=== PATIENT | female | born 1950 | race Caucasian/White ===

== ENCOUNTER 2020-07-10 07:45 | Outpatient (CLI) | payer MEDICARE, OTHER, SELFPAY ==
--- NOTE | ~2020-07-10 | MM_ITS ---
EXAMINATION: MM screening jacqueline BI w perry HISTORY: Screening mammogram TECHNIQUE: Craniocaudal and mediolateral oblique 3-D tomosynthesis images were obtained and synthetic 2-D images were generated. CAD analysis was submitted and interpreted. COMPARISON: No prior mammogram is available for comparison at this institution. BREAST PARENCHYMAL COMPOSITION: There are scattered areas of fibroglandular density. FINDINGS: There is asymmetric density and suggested focal architectural distortion in the mid to lowe r outer left breast (craniocaudal Tomosynthesis images 17-31). Otherwise there is no evidence of suspicious mass, calcification, or architectural distortion to sugg est malignancy in either breast. There has been no other suspicious interval change. IMPRESSION: 1. Focal asymmetry/architectural distortion in middle lower outer left breast 2. Diagnostic left mammogram and left breast ultrasound examination are recommended. BI-RADS Category 0: Incomplete: Needs additional imaging evaluation. Reviewed, dictated and finalized at location A. IMPRESSION: 1. Focal asymmetry/architectural distortion in middle lower outer left breast 2. Diagnostic left mammogram and left breast ultrasound examination are recomme nded. BI-RADS Category 0: Incomplete: Needs additional imaging evaluation.
--- NOTE | ~2020-07-10 | DEXA_ITS ---
Bone Density Report Name: Linda Cooley Age: 69 Sex: Female Ethnicity: White Date of : 1950 Indication: postmenopausal; parental hip fracture; height loss; prior fracture; Referring Provider: Kalia Samaniego Study: Bone densitometry was performed. Exam Date: July 10, 2020 Accession number: [id number] There is hypertrophic degenerative change of the lumbar spine, which results in higher than expected spine bone mineral density measurements. These spine BMD and T score and Z score measurements are not reflective of the patient's true general bone mineral density. Bone Density: Region BMD T-score Z-score Classification AP Spine (L2, L3) 1.047 -0.1 2.0 Normal Femoral Neck (Left) 0.674 -1.6 0.2 Osteopenia Total Hip (Left) 0.845 -0.8 0.7 Normal Total Hip Bilateral Avg 0.828 -1.0 0.6 Osteopenia Femoral Neck (Right) 0.685 -1.5 0.3 Osteopenia Total Hip (Right) 0.810 -1.1 0.4 Osteopenia World Health Organization criteria for BMD impression classify patients as: Normal (T-score at or above -1.0), Osteopenia (T-score between -1.0 and -2.5), or Osteoporosis (T-score at or below -2.5). 10-year Fracture Risk(1): Major Osteoporotic Fracture 22% Hip Fracture 3.8% Reported Risk Factors: [place] (), Neck BMD=0.674, BMI=37.3, previous fracture, parental fracture (1) FRAX(R) Version 3.08. Fracture probability calculated for an untreated patient. Fracture probability may be lower if the patient has received treatment. Clinical Information Provided by Patient: Has had a low trauma fracture Parent has had a hip fracture Has used the following medications: Vitamin D, Calcium Patient maximum height was 63.5 Menopause Age: 50 Drinks caffeinated beverages Onset of menses at age 13 Number of children 2 Impression: The patient has low bone mass, based on the Left Femoral Neck T-score. The patient has an estimated ten-year risk of hip fracture of 3.8% and an estimated ten-year risk of major fracture of 22%, based on the WHO FRAX algorithm. The patient has risk factors, including: parental hip fracture, previous fracture. There is hypertrophic degenerative change of the lumbar spine, which results in higher than expected spine bone mineral density measurements. These spine BMD and T score and Z score measurements are not reflective of the patient's true general bone mineral density. Discussion: BONE DENSITY IS LOW AT ONE OR MORE SKELETAL SITES. THE PATIENT'S BMD AND CLINICAL RISK FACTORS CONTRIBUTE TO THIS PATIENT'S HIGH RISK OF FRACTURE. This patient's lowest T-score is low at one or more skeletal sites. It meets the World Health Organization's (WHO) criteria for ?low bone mass? (T-score between -1.0 and -2.5). The patient's 10-year risk of hip fracture and 10 year risk of a major osteoporotic fracture as calculat
== END 2020-07-10 07:46 | disposition home or self-care (01) ==
PROVIDERS: PCP Family Medicine; Visit Provider Family Medicine
DX: Z12.31 Encounter for screening mammogram for malignant neoplasm of breast (principal); Z78.0 Asymptomatic menopausal state; M85.89 Other specified disorders of bone density and structure, multiple sites; R92.8 Other abnormal and inconclusive findings on diagnostic imaging of breast
CPT/HCPCS: 77063; 77067; 77080

== ENCOUNTER 2020-09-25 08:48 | Outpatient (CLI) | payer MEDICARE, OTHER, SELFPAY ==
--- NOTE | 2020-09-25 11:30 | NEURO_ITS ---
Impression: # Complains of pain and numbness of hands and forearms, particularly on the left. # Mild evolving left Carpal Tunnel Syndrome. # No ulnar neuropathy. # Normal needle/EMG exam. # Clinical correlation recommended. Nerve Conduction Studies Anti Sensory Summary Table Stim Site NR Peak (ms) P-T Amp (?V) Site1 Site2 Delta-P (ms) Dist (cm) Ambrosio (m/s) Left Median Anti Sensory (2-3nd Digit) Wrist 3.5 31.9 Wrist 2-3nd Digit 3.5 14.0 40 Wrist 3.5 57.7 Wrist 2-3nd Digit 3.5 14.0 40 Right Median Anti Sensory (2-3nd Digit) Wrist 3.5 23.8 Wrist 2-3nd Digit 3.5 14.0 40 Wrist 3.5 32.8 Wrist 2-3nd Digit 3.5 14.0 40 Left Radial Anti Sensory (Base 1st Digit) Wrist 2.1 23.8 Wrist Base 1st Digit 2.1 0.0 Right Radial Anti Sensory (Base 1st Digit) Wrist 2.3 17.3 Wrist Base 1st Digit 2.3 0.0 Left Ulnar Anti Sensory (5th Digit) Wrist 2.4 44.6 Wrist 5th Digit 2.4 14.0 58 Right Ulnar Anti Sensory (5th Digit) Wrist 2.4 24.9 Wrist 5th Digit 2.4 14.0 58 Motor Summary Table Stim Site NR Onset (ms) O-P Amp (mV) Site1 Site2 Delta-0 (ms) Dist (cm) Ambrosio (m/s) Left Median Motor (Abd Poll Brev) Wrist 3.4 4.7 Elbow Wrist 4.6 26.0 57 Elbow 8.0 1.7 Right Median Motor (Abd Poll Brev) Wrist 3.0 7.2 Elbow Wrist 5.1 28.0 55 Elbow 8.1 5.2 Left Ulnar Motor (Abd Dig Minimi) Wrist 2.3 4.6 A Elbow Wrist 4.9 28.0 57 A Elbow 7.2 2.9 Right Ulnar Motor (Abd Dig Minimi) Wrist 2.6 7.4 A Elbow Wrist 4.4 27.0 61 A Elbow 7.0 5.9 F Wave Studies NR F-Lat (ms) L-R F-Lat (ms) Left Median (Mrkrs) (Abd Poll Brev) 26.80 0.19 Right Median (Mrkrs) (Abd Poll Brev) 26.61 0.19 Left Ulnar (Mrkrs) (Abd Dig Min) 27.33 0.75 Right Ulnar (Mrkrs) (Abd Dig Min) 26.58 0.75 EMG Side Muscle Nerve Root Ins Act Fibs Amp Dur Recrt Comment Right 1stDorInt Ulnar C8-T1 Nml Nml Nml Nml Nml Right Ext Indicis Radial (Post Int) C7-8 Nml Nml Nml Nml Nml Right Ext Digitorum Radial (Post Int) C7-8 Nml Nml Nml Nml Nml Right BrachioRad Radial C5-6 Nml Nml Nml Nml Nml Right PronatorTeres Median C6-7 Nml Nml Nml Nml Nml Right Abd Poll Brev Median C8-T1 Nml Nml Nml Nml Nml Left 1stDorInt Ulnar C8-T1 Nml Nml Nml Nml Nml Left Ext Indicis Radial (Post Int) C7-8 Nml Nml Nml Nml Nml Left Ext Digitorum Radial (Post Int) C7-8 Nml Nml Nml Nml Nml Left BrachioRad Radial C5-6 Nml Nml Nml Nml Nml Left PronatorTeres Median C6-7 Nml Nml Nml Nml Nml Left Abd Poll Brev Median C8-T1 Nml Nml Nml Nml Nml Right ABD Dig Min Ulnar C8-T1 Nml Nml Nml Nml Nml Left ABD Dig Min Ulnar C8-T1 Nml Nml Nml Nml Nml MTDD
== END 2020-09-25 08:49 | disposition home or self-care (01) ==
PROVIDERS: PCP Family Medicine; Visit Provider Family Medicine
DX: G56.02 Carpal tunnel syndrome, left upper limb (principal)
CPT/HCPCS: 95886; 95911

== ENCOUNTER 2020-12-26 10:16 | Outpatient (CLI) | payer MEDICARE, OTHER, SELFPAY ==
--- NOTE | ~2020-12-26 | XR_ITS ---
EXAMINATION: XR lumbar spine 2-3V DATE: 12/26/2020 10:38 INDICATION: Low back pain TECHNIQUE: Anteroposterior and lateral views of the lumbar spine, and cone-down lateral view of the l umbosacral junction were obtained. COMPARISON: None. FINDINGS: 25 degrees lumbar levoscoliosis measured between L1 and L4. 3 mm anterolisthesis L2 on L3 and 4 mm an terolisthesis L4 on L5. Vertebral body heights are normal. Severe right-sided disc height loss at L2- L3 and L3-L4. More uniform severe disc height loss with vacuum phenomena at L4-L5. Moderate left-side d disc height loss at L1-L2. Mild disc height loss at L5-S1 and on the left side of T12-L1. There are prominent degenerative endplate osteophytes and severe multilevel bilateral facet osteoarthritis thr oughout the lumbar spine. Sacral arches are intact. Mild bilateral sacroiliac osteoarthritis. Cholecy stectomy clips in the right upper quadrant. IMPRESSION: 1. 25 degrees lumbar levoscoliosis with severe spondylosis. Reviewed, dictated and finalized at location B. U NURSE
--- NOTE | ~2020-12-26 | XR_ITS ---
EXAMINATION: XR knee RT 3V DATE: 12/26/2020 10:37 INDICATION: Right knee pain. TECHNIQUE: 3 views of right knee were obtained. COMPARISON: None. FINDINGS: Bone alignment is normal. No fracture. There is mild tricompartmental osteoarthritis. No kn ee joint effusion. IMPRESSION: 1. Mild right knee osteoarthritis. Reviewed, dictated and finalized at location A. 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
== END 2020-12-26 10:17 | disposition home or self-care (01) ==
LOC: ANHIMG 10:20
PROVIDERS: PCP Family Medicine; Visit Provider Nurse Practitioner Family
DX: M47.816 Spondylosis without myelopathy or radiculopathy, lumbar region (principal); M17.11 Unilateral primary osteoarthritis, right knee
CPT/HCPCS: 72100; 73562

== ENCOUNTER 2021-01-16 12:01 | Outpatient (CLI) | payer MEDICARE, OTHER, SELFPAY ==
--- NOTE | ~2021-01-16 | XR_ITS ---
XR wrist LT min 3V DATE: 01/16/2021 12:22 INDICATION: Pain and grinding at lateral aspect of wrist TECHNIQUE: 4 views COMPARISON: None FINDINGS: There is prominent osteoarthritic change at the first carpometacarpal joint, including join t space narrowing and degenerative spurring. There is osteoarthritis at the first and fifth metacarpophalangeal joints. No fracture or dislocation, periosteal reaction or bone destruction, erosive change or chondrocalcino sis is detected. Moderate osteopenia. IMPRESSION: Prominent osteoarthritis at the first carpometacarpal joint Osteoarthritis at first and fifth metacarpophalangeal joints Osteopenia Reviewed, dictated and finalized at location A.
== END 2021-01-16 12:02 | disposition home or self-care (01) ==
LOC: ANHIMG 12:06
PROVIDERS: PCP Family Medicine; Visit Provider Plastic Surgery
DX: M19.032 Primary osteoarthritis, left wrist (principal); M19.042 Primary osteoarthritis, left hand; M85.842 Other specified disorders of bone density and structure, left hand
CPT/HCPCS: 73110

== ENCOUNTER 2021-02-17 09:50 | Outpatient (CLI) | payer MEDICARE, OTHER, SELFPAY ==
--- NOTE | 2021-02-17 10:15 | ECG_ITS ---
Measurements Intervals [place] Rate: 55 P: 33 TN: 166 QRS: 111 QRSD: 92 T: 17 QT: 398 QTc: 382 Interpretive Statements SINUS BRADYCARDIA RIGHT AXIS DEVIATION POSSIBLE LEFT ATRIAL ENLARGEMENT INCOMPLETE RIGHT BUNDLE BRANCH BLOCK BORDERLINE T WAVE ABNORMALITY- ANT/INF LEADS BASELINE ARTIFACT- I, II, III, AVR, AVL BORDERLINE ECG Electronically Signed On 02-17-2021 11:01:02 CDT by Bill William D.O.
[2021-02-17 10:30] LABS: Anion Gap 3 mmol/L (8-16); Blood Urea Nitrogen 20 mg/dL (7-17); Calcium 9.2 mg/dL (8.4-10.2); Carbon Dioxide 36 mmol/L (22-30); Chloride 103 mmol/L (98-107); Estimated Glomerular Filt Rate > 60; Glucose 95 mg/dL (65-105); Potassium 4.1 mmol/L (3.4-5.0); Sodium 142 mmol/L (137-145)
== END 2021-02-17 09:51 | disposition home or self-care (01) ==
LOC: ANHSURGERY 09:55
PROVIDERS: Anesthesiology; PCP Family Medicine; Visit Provider Plastic Surgery
DX: Z01.818 Encounter for other preprocedural examination (principal); E78.5 Hyperlipidemia, unspecified; Z51.81 Encounter for therapeutic drug level monitoring; Z79.899 Other long term (current) drug therapy; R00.1 Bradycardia, unspecified; I45.10 Unspecified right bundle-branch block
CPT/HCPCS: 36415; 80048; 93005

== ENCOUNTER → 2021-02-21 02:02 | Outpatient (CLI) | payer MEDICARE, OTHER, SELFPAY ==
[2021-02-21 19:16] LABS: SARS-CoV-2 RNA PCR Negative
== END ==
PROVIDERS: PCP Family Medicine; Visit Provider Plastic Surgery
DX: Z01.812 Encounter for preprocedural laboratory examination (principal); Z20.822 Contact with and (suspected) exposure to COVID-19
CPT/HCPCS: C9803; U0003; U0005

== ENCOUNTER 2021-02-25 00:51 | Day surgery (SDC) | payer MEDICARE, OTHER, SELFPAY ==
[2021-02-12 15:19] VITALS: BMI 39.1
[2021-02-25] VITALS (7 sets, daily range): BP systolic 119–156; BP diastolic 57–78; PULSE 51–66; RESP 12–20; TEMP 37.2; O2SAT 93–100
[2021-02-25] MEDS: LACTATED RINGERS 1,000 ML 30 ML IV CONT (06:40)
--- NOTE | 2021-02-25 06:53 | WPDANESEPPF ---
Anes - Initial Pre Proc Eval Procedure: Operation Date: 02/25/21 07:30 Proposed Procedures p Left Open Carpal Tunnel Release - Avinash Mccormick MD Date/Time: 02/25/21 06:53 Surgeon: Avinash Mccormick MD Pre Op Diagnosis: left carpal tunnel syndrome Patient Data Age: 70 Gender: F Height: 1.57 m Weight: 97 kg Allergies Allergy/AdvReac Type Severity Reaction Status Date / Time Sulfa (Sulfonamide AdvReac Mild RED WELPS Verified 02/25/21 06:24 Antibiotics) AT FOLD AREAS OF NECK/GROIN/AXILLA Home Medications Medication Instructions Recorded Confirmed Type albuterol sulfate 90 mcg/actuation 1 puff INHALATION Q4H PRN 06/17/20 02/12/21 History aerosol inhaler calcium citrate 315 mg 1 tablet PO BID 06/17/20 02/25/21 History calcium-vitamin D3 6.25 mcg (250 unit) tablet cyclosporine 0.05 % eye drops in a 1 drop EACH EYE Q12H 06/17/20 02/25/21 History dropperette fluticasone propionate 50 2 spray NASAL DAILY PRN 06/17/20 02/25/21 History mcg/actuation nasal spray,suspension furosemide 20 mg tablet 10 mg PO QAM 06/17/20 02/25/21 History lidocaine 5 % topical patch 1 patch TOPICAL DAILY PRN 06/17/20 02/12/21 History multivitamin 1 tablet PO DAILY 06/17/20 02/25/21 History omega-3 fatty acids-fish oil 360 1 cap PO BID 06/17/20 02/25/21 History mg-1,200 mg capsule timolol 0.5 % eye drops 1 drop EACH EYE Q12H 06/17/20 02/25/21 History vit C 250 mg-vit E 200 unit-zinc 1 cap PO BID 06/17/20 02/25/21 History ox 12.5 et-lpgxyd-nubwee-zeax capsule celecoxib 200 mg capsule 200 mg PO DAILY #90 cap 09/30/20 02/25/21 Rx atorvastatin 10 mg tablet 10 mg PO DAILY #90 tablet 01/14/21 02/25/21 Rx montelukast 10 mg tablet 10 mg PO DAILY #90 tablet 01/14/21 02/25/21 Rx cyclobenzaprine 5 mg PO HS 02/12/21 02/25/21 History diphenhydramine-acetaminophen 1 tablet PO HS PRN 02/12/21 02/25/21 History [Tylenol PM Extra Strength] duloxetine [Cymbalta] 60 mg PO QAM 02/12/21 02/25/21 History Patient hx anesthesia problems: none Family hx anesthesia problems: none PMFSH Past Medical History Medical History (Updated 02/24/21 @ 13:11 by Andrea Castellon DO) Allergic rhinitis Asthma Fibromyalgia Glaucoma HLD (hyperlipidemia) Macular degeneration PONV (postoperative nausea and vomiting) Sjogren's disease Surgical History Surgical History History of bilateral cataract extraction History of bilateral tubal ligation History of cholecystectomy History of D&C Family History Family History Sibling Throat cancer Hypertension Heart disease Mother Dementia Social History Social History (Updated 01/30/21 @ 09:27 by Tatiana Najera MA) Smoking status: Never smoker Second hand tobacco smoke exposure: No Alcohol intake: current Substance use: never Substance use type: does not use Living arrangements: with family Additional living arrangements comments: [facility]USB Gender identity (if verbalized by the patient): Female Spiritual care concerns: No Anes - Eval Final PreProcedure Day of Procedure 02/25/21 06:53 Patient weight: obese Heart: regular rate and rhythm Lungs: clear to auscultation and normal air movement Airway: Mallampati scale class II Neurological: alert and oriented Last oral intake: >/= 8 hours ASA classification: III Emergent: no Anesthetic plan: proceed Anesthesia type and monitoring: general GIVS and standard monitoring Informed Consent: The patient's anesthetic plan and its attendant risks and benefits were discussed with the patient/family/POA. Questions were solicited and answers provided to the satisfaction of the patient/family/POA.
--- NOTE | 2021-02-25 07:08 | WPDHPUPDATE1 ---
History and Physical Update Update Date/Time: 02/25/21 07:08 History and Physical has been reviewed, including an updated exam of the patient. There are NO changes in the patient's condition. Risks, benefits, and alternatives have been discussed and questions answered. Patient agrees to proceed with procedure.
[2021-02-25] MEDS: LIDO 1%/EPINEPHRINE 1:100,000 50 ML VIAL INFILTRATE (07:24)
--- NOTE | 2021-02-25 07:31 | PM.OP ---
Procedure Note - Brief Procedure Note - Brief Date of procedure: 02/25/21 Pre-op diagnosis: left carpal tunnel syndrome Post-op diagnosis: same Procedure performed: LOCTR Anesthesia: MAC Surgeon: Avinash Mccormick MD Estimated blood loss (mL): 0 Drains: No Packing: No Pathology: none sent Complications: No immediate complications Condition: stable Disposition: same day
--- NOTE | 2021-02-25 08:02 | PM.PROC ---
Procedure Note - Detailed Date of procedure: 02/25/21 Pre-op diagnosis: left carpal tunnel syndrome Post-op diagnosis: same Procedure performed: Left open carpal tunnel release Description of procedure: The left wrist was marked in the holding area. The patient was taken to the operating room and placed supine on the operating table. A time-out was held and confirmed. The extremity was prepped and draped in usual fashion she was given IV sedation. The site was marked the tourniquet was inflated 250 mmHg had been locally infiltrated with 1% lidocaine with epinephrine. Incision was made as marked and dissection was carried through the subcutaneous tissue to the palmar aponeurosis. This and the transverse carpal ligament were incised with a 15. Blade. Under 3 point retraction the ligament divided distally and proximally for complete release. There was no unusual anatomy. The skin wound was closed with interrupted 5 0 nylon suture. Small bandage was applied she has instructions in and follow-up. She has a prescription for hydrocodone 5/325 10. Anesthesia: MAC Surgeon: Avinash Mccormick MD Estimated blood loss (mL): 1 Tourniquet time (min): 6 Drains: No Packing: No Pathology: none sent Complications: No immediate complications Condition: stable Disposition: same day
[2021-02-25] MEDS: ONDANSETRON INJ 4 MG/2 ML VIAL IV PUSH (08:30)
--- NOTE | 2021-02-25 08:33 | ECG_ITS ---
Measurements Intervals [place] Rate: 47 P: 35 [place]: 182 QRS: 87 QRSD: 99 T: 11 QT: 458 QTc: 407 Interpretive Statements SINUS BRADYCARDIA INCOMPLETE RIGHT BUNDLE BRANCH BLOCK BORDERLINE ST-T WAVE ABNORMALITY- ANT/INF LEADS BASELINE WANDER- V4, V6 ABNORMAL ECG Electronically Signed On 02-25-2021 9:00:39 CDT by Bill William D.O.
[2021-02-25 09:20] LABS: Glucose Point of Care 121 (65-105)
[2021-02-25 09:32] LABS: Troponin I < 0.012 ng/mL (0.000-0.034)
== END 2021-02-25 10:20 | disposition home or self-care (01) ==
PROVIDERS: Anesthesiology; PCP Family Medicine; Visit Provider Plastic Surgery
PROC: (CPT 64721; principal; 2021-02-25 07:30)
DX: G56.02 Carpal tunnel syndrome, left upper limb (principal); J45.909 Unspecified asthma, uncomplicated; M79.7 Fibromyalgia; E78.5 Hyperlipidemia, unspecified; M35.00 Sjogren syndrome, unspecified; H40.9 Unspecified glaucoma; H35.30 Unspecified macular degeneration; Z79.51 Long term (current) use of inhaled steroids; E66.9 Obesity, unspecified; Z68.39 Body mass index [BMI] 39.0-39.9, adult
CPT/HCPCS: 64721; 36415; 82948; 84484; 93005; A9270; J2250; J2405; J2704; J3010; J7120

== ENCOUNTER 2021-03-11 13:30 | Outpatient (CLI) | payer MEDICARE, OTHER, SELFPAY ==
--- NOTE | ~2021-03-11 | XR_ITS ---
XR hand RT 2V DATE: 03/11/2021 14:45 INDICATION: Multiple joint pain. Right hand pain. TECHNIQUE: AP and lateral views COMPARISON: None FINDINGS: Osteopenia. There is osteoarthritis at the first carpometacarpal joint, first, second and fifth metacarpophalange al joints in particular, as well as multiple interphalangeal joints, most prominent at the proximal i nterphalangeal joint of the third digit. No fracture or dislocation, periosteal reaction or bone destruction. No erosive change or chondrocalc inosis is evident. IMPRESSION: Osteopenia Polyarticular osteoarthritis Reviewed, dictated and finalized at location B.
--- NOTE | ~2021-03-11 | XR_ITS ---
XR foot RT 2V DATE: 03/11/2021 14:43 INDICATION: Multiple joint pain. Right foot pain. TECHNIQUE: AP and lateral views COMPARISON: None FINDINGS: There is osteopenia. Mild plantar calcaneal enthesopathy without associated erosive change or periostitis. Mild osteoarthritic arthritis at the first metatarsophalangeal joint. Probable old cortical avulsion fracture deformity at the medial base of the proximal phalanx of the f ourth digit. No recent fracture or dislocation, periosteal reaction or bone destruction. No erosive change. IMPRESSION: Osteopenia Plantar calcaneal enthesopathy Mild osteoarthritic arthritis at first metatarsophalangeal joint Probable old displaced cortical avulsion fracture at the medial base of proximal phalanx of fourth di git Reviewed, dictated and finalized at location B. IMPRESSION: Osteopenia Plantar calcaneal enthesopathy Mild osteoarthritic arthritis at first metatarsophalangeal joint Probable old displaced cortical avulsion fracture at the medial base of proxima l phalanx of fourth digit
--- NOTE | ~2021-03-11 | XR_ITS ---
XR hip LT min 2V DATE: 03/11/2021 14:43 INDICATION: Left hip pain. Multiple joint pain. TECHNIQUE: AP and lateral views COMPARISON: None FINDINGS: There is joint space narrowing and degenerative spurring consistent with moderately severe left hip osteoarthritis. Osteopenia. Normal alignment at the sacroiliac joints and pubic symphysis. No fracture, dislocation, avascular necrosis or bone destruction of the left hip is detected. IMPRESSION: Moderately severe left hip osteoarthritic arthritis Osteopenia Reviewed, dictated and finalized at location B.
--- NOTE | ~2021-03-11 | XR_ITS ---
XR foot LT 2V DATE: 03/11/2021 14:43 INDICATION: Left foot pain. Multiple joint pain. TECHNIQUE: AP and lateral views COMPARISON: None FINDINGS: Osteopenia. Mild plantar and slight posterior calcaneal enthesopathy. Moderate osteoarthritis at the first metatarsophalangeal joint. No fracture, dislocation, periosteal reaction or bone destruction. IMPRESSION: Osteopenia Calcaneal enthesopathy Moderate osteoarthritis at first metatarsophalangeal joint Reviewed, dictated and finalized at location B.
--- NOTE | ~2021-03-11 | XR_ITS ---
XR hand LT 2V DATE: 03/11/2021 14:44 INDICATION: Polyarticular joint pain. Left hand pain. TECHNIQUE: AP and lateral views COMPARISON: None FINDINGS: Diffuse osteopenia. There is osteoarthritic change at the first carpometacarpal joint. There is mild osteoarthritic mackay e at the metacarpophalangeal joints. There is osteoarthritic change at the interphalangeal joints, mo st prominent at the distal interphalangeal joint of the second digit and proximal interphalangeal edu nt of the third digit. No fracture or dislocation, periosteal reaction or bone destruction. No erosive change. No chondrocal cinosis is detected. IMPRESSION: Osteopenia Polyarticular osteoarthritis Reviewed, dictated and finalized at location B.
--- NOTE | ~2021-03-11 | XR_ITS ---
XR hip RT min 2V DATE: 03/11/2021 14:43 INDICATION: Right hip pain. Multiple joint pain. TECHNIQUE: AP and lateral views COMPARISON: None FINDINGS: Diffuse osteopenia. There is prominent joint space narrowing and spurring at the right hip joint consistent with moderate ly severe right hip osteoarthritis. The pubic symphysis and right sacral iliac joint are intact. No fracture, dislocation, avascular necrosis or bone destruction of the right hip is evident. IMPRESSION: Moderately severe right hip osteoarthritic arthritis Osteopenia Reviewed, dictated and finalized at location B.
--- NOTE | ~2021-03-11 | XR_ITS ---
XR wrist RT 2V DATE: 03/11/2021 14:43 INDICATION: Multiple joint pain. Right wrist pain. TECHNIQUE: AP and lateral views COMPARISON: None FINDINGS: Diffuse osteopenia. No fracture or dislocation, periosteal reaction or bone destruction. There is osteoarthritic change at the first carpometacarpal, first metacarpophalangeal and interphala ngeal joints. IMPRESSION: Osteoarthritic change at first carpometacarpal, first metacarpophalangeal and first inter phalangeal joints Osteopenia Reviewed, dictated and finalized at location B. IMPRESSION: Osteoarthritic change at first carpometacarpal, first metacarpophal angeal and first interphalangeal joints Osteopenia
--- NOTE | ~2021-03-11 | XR_ITS ---
XR ankle LT 2V DATE: 03/11/2021 14:43 INDICATION: Multiple joint pain. Left ankle pain. TECHNIQUE: AP and lateral views COMPARISON: None FINDINGS: Mild plantar calcaneal enthesopathy. No fracture or dislocation of the ankle or disruption of the ankle mortise. Diffuse osteopenia. IMPRESSION: Osteopenia Mild plantar calcaneal enthesopathy Reviewed, dictated and finalized at location B.
--- NOTE | ~2021-03-11 | XR_ITS ---
XR knee LT 2V DATE: 03/11/2021 14:43 INDICATION: Multiple joint pain. Left knee pain. TECHNIQUE: AP and lateral views COMPARISON: None FINDINGS: Mild suprapatellar knee joint effusion. There is mild osteoarthritis at the patellofemoral joint. There is minimal loss of height of the medial compartment joint space. Osteopenia. No fracture, dislocation, periosteal reaction or bone destruction. No radiopaque intra-articular loos e body or chondrocalcinosis. IMPRESSION: Osteopenia Mild suprapatellar knee joint effusion Mild osteoarthritic arthritis at the patellofemoral and medial compartments Reviewed, dictated and finalized at location B.
--- NOTE | ~2021-03-11 | XR_ITS ---
XR ankle RT 2V DATE: 03/11/2021 14:43 INDICATION: Right ankle pain. Multiple joint pain. TECHNIQUE: AP and lateral views COMPARISON: None FINDINGS: Mild plantar calcaneal enthesopathy, without erosive change or periostitis. Osteopenia. No fracture or dislocation of the ankle or disruption of the ankle mortise. No periosteal reaction or bone destruction. IMPRESSION: Osteopenia Plantar calcaneal enthesopathy Reviewed, dictated and finalized at location B.
--- NOTE | ~2021-03-11 | XR_ITS ---
XR shoulder RT min 2V DATE: 03/11/2021 14:43 INDICATION: Right shoulder pain. Multiple joint pain. TECHNIQUE: 2 views COMPARISON: None FINDINGS: Diffuse osteopenia. No fracture or dislocation, periosteal reaction or bone destruction of the right shoulder joint. Norm al alignment at the acromioclavicular and glenohumeral joints. Mild degenerative change at the acromi on clavicular joint. Mild extra scoliosis and prominent degenerative spurring of the upper thoracic spine. Aortic arch gabriela cification. IMPRESSION: Mild degenerative change at the right acromioclavicular joint Osteopenia Reviewed, dictated and finalized at location B.
--- NOTE | ~2021-03-11 | XR_ITS ---
XR knee RT 2V DATE: 03/11/2021 14:43 INDICATION: Multiple joint pain. Right knee pain. TECHNIQUE: AP and lateral views COMPARISON: None FINDINGS: There is diffuse osteopenia. There is minimal periarticular spurring of the patella. Is mild loss of medial compartment joint spac e. No fracture or dislocation or joint effusion. No periosteal reaction or bone destruction. No radiopaq ue intra-articular loose body or chondrocalcinosis is evident. IMPRESSION: Osteopenia Mild osteoarthritis at the patellofemoral and medial compartments Reviewed, dictated and finalized at location B.
--- NOTE | ~2021-03-11 | XR_ITS ---
XR lumbar spine min 4V DATE: 03/11/2021 14:43 INDICATION: Back pain TECHNIQUE: AP, coned lateral lumbosacral views. Flexion and extension standing lateral views COMPARISON: None FINDINGS: There is diffuse osteopenia. There is severe multi-level degenerative disc disease. No fracture or bone destruction. The lumbar pedicles are intact. There is degenerative change at th e apophyseal joints with minimal grade 1 anterolisthesis at L2-3 and L4-5. There is no significant in stability on flexion or extension. There is levoscoliosis of the lumbar spine from L2 to L4. The sacroiliac joints appear normal. Surgical clips, right upper quadrant, consistent with cholecystectomy. There is a prominent amount of fecal material throughout much of the colon. IMPRESSION: Severe multilevel degenerative disc disease Degenerative change at the apophyseal joints with minimal grade 1 anterolisthesis at L2-3 and L4-5 Reviewed, dictated and finalized at location B. IMPRESSION: Severe multilevel degenerative disc disease Degenerative change at the apophyseal joints with minimal grade 1 anterolisthes is at L2-3 and L4-5
--- NOTE | ~2021-03-11 | XR_ITS ---
XR shoulder LT min 2V DATE: 03/11/2021 14:43 INDICATION: Multiple joint pain. Left shoulder pain. TECHNIQUE: 2 views COMPARISON: None FINDINGS: Diffuse osteopenia. No fracture, dislocation, periosteal reaction or bone destruction. Norm al alignment at the acromioclavicular and glenohumeral joints. Mild levoscoliosis of the upper thoracic spine. Number degenerative spurring of the included upper to mid thoracic spine. IMPRESSION: Osteopenia; otherwise negative left shoulder Scoliosis and degenerative spurring of the thoracic spine Reviewed, dictated and finalized at location B.
--- NOTE | ~2021-03-11 | XR_ITS ---
XR elbow RT 2V DATE: 03/11/2021 14:43 INDICATION: Right elbow pain multiple joint pain. TECHNIQUE: AP and lateral views COMPARISON: None FINDINGS: No fracture or dislocation or joint effusion. No periosteal reaction or bone destruction. IMPRESSION: No significant abnormality Reviewed, dictated and finalized at location B. IMPRESSION: No significant abnormality
--- NOTE | ~2021-03-11 | XR_ITS ---
XR wrist LT 2V DATE: 03/11/2021 14:43 INDICATION: Multiple joint pain. Left wrist pain. TECHNIQUE: AP and lateral views COMPARISON: None FINDINGS: Diffuse osteopenia. There is osteoarthritic change at the first carpometacarpal, first metacarpophalangeal and first inte rphalangeal joints. No fracture, dislocation, periosteal reaction or bone destruction, chondrocalcinosis or erosive mackay e. IMPRESSION: Osteopenia Osteoarthritis at first carpometacarpal, first metacarpal phalangeal and interphalangeal joints Reviewed, dictated and finalized at location B. IMPRESSION: Osteopenia Osteoarthritis at first carpometacarpal, first metacarpal phalangeal and interp halangeal joints
--- NOTE | ~2021-03-11 | XR_ITS ---
XR elbow LT 2V DATE: 03/11/2021 14:43 INDICATION: Multiple joint pain. Left elbow pain. TECHNIQUE: AP and lateral views COMPARISON: None FINDINGS: No fracture or dislocation or joint effusion. No periosteal reaction or bone destruction. IMPRESSION: Negative Reviewed, dictated and finalized at location B. IMPRESSION: Negative
== END 2021-03-11 13:31 | disposition home or self-care (01) ==
PROVIDERS: PCP Family Medicine; Referring Provider Internal Medicine Rheumatology; Visit Provider Neurological Surgery
DX: M48.062 Spinal stenosis, lumbar region with neurogenic claudication (principal); M47.26 Other spondylosis with radiculopathy, lumbar region; M43.16 Spondylolisthesis, lumbar region; M25.462 Effusion, left knee; M19.042 Primary osteoarthritis, left hand; M19.041 Primary osteoarthritis, right hand; M85.842 Other specified disorders of bone density and structure, left hand; M85.841 Other specified disorders of bone density and structure, right hand; M18.0 Bilateral primary osteoarthritis of first carpometacarpal joints; M19.032 Primary osteoarthritis, left wrist; M19.031 Primary osteoarthritis, right wrist; M16.0 Bilateral primary osteoarthritis of hip; M19.011 Primary osteoarthritis, right shoulder; M85.822 Other specified disorders of bone density and structure, left upper arm; M77.32 Calcaneal spur, left foot; M77.31 Calcaneal spur, right foot
CPT/HCPCS: 72110; 73030; 73070; 73100; 73120; 73502; 73560; 73600; 73620

== ENCOUNTER 2021-10-30 09:54 | Outpatient (CLI) | payer MEDICARE, OTHER, SELFPAY ==
--- NOTE | ~2021-10-30 | MM_ITS ---
EXAMINATION: MM screening [facility] BI w [facility] HISTORY: Screening mammogram TECHNIQUE: Craniocaudal and mediolateral oblique 3-D tomosynthesis images were obtained and synthetic 2-D images were generated. CAD analysis was submitted and interpreted. COMPARISON: 07/10/2020, 08/14/2018, 07/24/2018 BREAST PARENCHYMAL COMPOSITION: There are scattered areas of fibroglandular density. FINDINGS: There is no evidence of suspicious mass, calcification, or architectural distortion to sugg est malignancy in either breast. There has been no suspicious interval change. IMPRESSION: 1. No mammographic evidence of malignancy. 2. Recommend routine screening mammography in one year. BI-RADS Category 1: Negative Reviewed, dictated and finalized at location A. CUTTER
== END 2021-10-30 09:55 | disposition home or self-care (01) ==
LOC: ANHIMG 09:56
PROVIDERS: PCP Family Medicine; Visit Provider Nurse Practitioner Family
DX: Z12.31 Encounter for screening mammogram for malignant neoplasm of breast (principal)
CPT/HCPCS: 77063; 77067

== ENCOUNTER 2022-10-19 14:17 | Outpatient (CLI) | payer MEDICARE, OTHER, SELFPAY ==
[2022-10-19 15:08] LABS: Influenza A QL RT-PCR Negative (Negative); Influenza B QL RT-PCR Negative (Negative); SARS-CoV-2 RNA PCR Negative
== END 2022-10-19 14:18 | disposition home or self-care (01) ==
PROVIDERS: PCP Family Medicine; Visit Provider Physician Assistant
DX: R42 Dizziness and giddiness (principal); Z20.822 Contact with and (suspected) exposure to COVID-19
CPT/HCPCS: 87636

== ENCOUNTER 2023-01-26 07:26 | Outpatient (CLI) | payer MEDICARE, OTHER, SELFPAY ==
--- NOTE | ~2023-01-26 | MM_ITS ---
EXAMINATION: MM screening [facility] HISTORY: Screening mammogram TECHNIQUE: Craniocaudal and mediolateral oblique 3-D tomosynthesis images were obtained and synthetic 2-D images were generated. CAD analysis was submitted and interpreted. COMPARISON: 10/30/2021, 07/10/2020, 08/14/2018 bilateral screening mammogram examinations BREAST PARENCHYMAL COMPOSITION: There are scattered areas of fibroglandular density. FINDINGS: There is no evidence of suspicious mass, calcification, or architectural distortion to sugg est malignancy in either breast. There has been no suspicious interval change. IMPRESSION: 1. No mammographic evidence of malignancy. 2. Recommend routine screening mammography in one year. BI-RADS Category 1: Negative Reviewed, dictated and finalized at location A.
== END 2023-01-26 07:27 | disposition home or self-care (01) ==
LOC: ANHIMG 07:30
PROVIDERS: PCP Family Medicine; Visit Provider Nurse Practitioner Family
DX: Z12.31 Encounter for screening mammogram for malignant neoplasm of breast (principal)
CPT/HCPCS: 77063; 77067

== ENCOUNTER 2023-06-17 11:33 | Emergency (ER) | payer MEDICARE, OTHER, SELFPAY ==
--- NOTE | ~2023-06-17 | XR_ITS ---
XR knee RT 3V 06/17/2023 12:04 Indication: Right knee pain and bruising Procedure: 3 views right knee Comparison: 03/11/2021 Findings: Small joint effusion. There is mild osteoarthritis. No fracture or traumatic malalignment. No foreign bodies. Impression: 1: No acute fracture. 2: Small joint effusion. Reviewed, dictated and finalized at location B. Impression: 1: No acute fracture. 2: Small joint effusion.
[2023-06-17 11:40] VITALS: BP 110/56; PULSE 80; RESP 19; TEMP 36.8; O2SAT 99
--- NOTE | 2023-06-17 14:43 | ED.LOWEXIN ---
HPI - Extremity Injury (Lower) General Chief Complaint: Extremity Injury, Lower Stated Complaint: Fall Time Seen by Provider: 06/17/23 14:13 Source: patient Related Data Home Medications Medication Instructions Recorded Confirmed albuterol sulfate 90 mcg/actuation 1 puff inhalation Q4H PRN Dyspnea 06/17/20 05/04/23 aerosol inhaler (ProAir HFA) calcium citrate 315 mg 1 tablet PO BID 06/17/20 05/04/23 calcium-vitamin D3 6.25 mcg (250 unit) tablet (Citracal + Vitamin D Maximum) cyclosporine 0.05 % eye drops in a 1 drop ophthalmic (eye) Q12H 06/17/20 05/04/23 dropperette (Restasis) fluticasone propionate 50 2 spray intranasal DAILY PRN 06/17/20 05/04/23 mcg/actuation nasal Congestion spray,suspension multivitamin 1 tablet PO DAILY 06/17/20 05/04/23 timolol 0.5 % eye drops 1 drop ophthalmic (eye) Q12H 06/17/20 05/04/23 vit C 250 mg-vit E 200 unit-zinc 1 cap PO BID 06/17/20 05/04/23 ox 12.5 [id number] capsule (ICaps AREDS2) cyclobenzaprine 5 mg tablet 5 mg PO HS 02/12/21 05/04/23 diphenhydramine 25 1 tablet PO HS PRN Insomnia 02/12/21 05/04/23 mg-acetaminophen 500 mg tablet (Tylenol PM Extra Strength) Allergies Allergy/AdvReac Type Severity Reaction Status Date / Time Sulfa (Sulfonamide AdvReac Mild RED WELPS Verified 06/17/23 12:08 Antibiotics) AT FOLD AREAS OF NECK/GROIN/AXILLA COUNTS INCLUDE 234 BEDS AT THE [facility] Past Medical History Medical History (Updated 06/17/23 @ 14:45 by Keith Chaudhry MD) Allergic rhinitis Asthma Fibromyalgia Glaucoma HLD (hyperlipidemia) Macular degeneration PONV (postoperative nausea and vomiting) Sjogren's disease Surgical History Surgical History (Updated 05/04/23 @ 13:45 by Kalia Samaniego MD) History of bariatric surgery gastric bypass History of bilateral cataract extraction History of bilateral tubal ligation History of cholecystectomy History of D&C Family History Family History Sibling Throat cancer Hypertension Heart disease Mother Dementia Social History Social History Smoking status: Never smoker Second hand tobacco smoke exposure: No Alcohol intake: current Alcohol use details: holidays/social Substance use: never Substance use type: does not use Living arrangements: with family Additional living arrangements comments: [facility] Occupation/Education: retired Gender identity (if verbalized by the patient): Female Sexual Orientation (if Verbalized by the Patient): Straight or Heterosexual Spiritual care concerns: No Course Vital Signs Vital signs: Vital Signs Temperature 36.8 C 06/17/23 11:40 Pulse Rate 80 06/17/23 11:40 Respiratory Rate 19 06/17/23 11:40 Blood Pressure 110/56 L 06/17/23 11:40 Pulse Oximetry 99 06/17/23 11:40 Temperature 36.8 C 06/17/23 11:40 Pulse Rate 80 06/17/23 11:40 Respiratory Rate 19 06/17/23 11:40 Blood Pressure 110/56 L 06/17/23 11:40 Pulse Oximetry 99 06/17/23 11:40 MDM - Extremity Injury (Lower) Imaging Data Radiologist's impression: Impressions Knee X-Ray 06/17/23 12:19 Impression: 1: No acute fracture. 2: Small joint effusion. Discharge Plan Discharge Clinical Impression: Contusion of knee, right Qualifiers: Encounter type: initial encounter Qualified Code(s): S80.01XA - Contusion of right knee, initial encounter Patient Disposition: Home, Self-Care Condition: Stable Additional Instructions: Return if symptoms are worsening , call your family physician for appointment, take Tylenol as as needed for aches and pain, continue home medications. Continue home tramadol, knee brace Prescriptions: No Action dicyclomine 10 mg capsule 10 mg PO TID PRN (Reason: stomach cramping) Qty: 60 0RF timolol 0.5 % drops 1 drop EACH EYE Q12H Restasis 0.05 % dropperette 1 drop EACH
[2023-06-17] MEDS: IBUPROFEN 600 MG TABLET PO (14:48)
[2023-06-17] MEDS: HYDROcodone/acetaminophen (*CRX) 5-325 MG TABLET 1 TAB PO (14:48)
== END 2023-06-17 14:56 | disposition home or self-care (01) ==
PROVIDERS: Emergency Provider Emergency Medicine; PCP Family Medicine
DX: S80.01XA Contusion of right knee, initial encounter (principal); E78.5 Hyperlipidemia, unspecified; W19.XXXA Unspecified fall, initial encounter
CPT/HCPCS: 73562; 99283; A9270

== ENCOUNTER 2023-09-14 15:32 | Outpatient (CLI) | payer MEDICARE, OTHER, SELFPAY ==
--- NOTE | ~2023-09-14 | DEXA_ITS ---
Bone Density Report Name: AZIZA SWEENEY Age: 72 Sex: Female Ethnicity: White Date of : 1950 Indication: postmenopausal; screening for osteoporosis; parental hip fracture; height loss; prior fracture; Referring Provider: PHYLLIS LOPEZ Study: Bone densitometry was performed. Exam Date: September 14, 2023 Accession number: [id number] Bone Density: Region BMD T-score Z-score Classification AP Spine(L2, L3) 0.900 -1.4 0.9 Osteopenia Femoral Neck (Left) 0.676 -1.6 0.4 Osteopenia Total Hip (Left) 0.688 -2.1 -0.4 Osteopenia World Health Organization criteria for BMD impression classify patients as: Normal (T-score at or above -1.0), Osteopenia (T-score between -1.0 and -2.5), or Osteoporosis (T-score at or below -2.5). 10-year Fracture Risk(1): Major Osteoporotic Fracture 26% Hip Fracture 9.0% Reported Risk Factors: [place] (), Neck BMD=0.676, BMI=25.0, previous fracture, parental fracture (1) FRAX(R) Version 3.08. Fracture probability calculated for an untreated patient. Fracture probability may be lower if the patient has received treatment. Previous Exams: Region Exam Age BMD T-score BMD Change BMD Change Date g/cm2 vs Baseline vs Previous AP Spine (L2-L3) 09/14/2023 72 0.900 -1.4 -0.147 (-14.1% -0.147 (-14.1% 07/10/2020 69 1.047 -0.1 Total Hip(Left) 09/14/2023 72 0.688 -2.1 -0.157 (-18.6% -0.157 (-18.6% 07/10/2020 69 0.845 -0.8 *Denotes significance at 95% confidence level, LSC for AP Spine = 0.022 g/cm2, LSC for Total Hip = 0.027 g/cm2 Clinical Information Provided by Patient: Has had a low trauma fracture Parent has had a hip fracture Patient maximum height was 64.0 Menopause Age: 50 Drinks caffeinated beverages Onset of menses at age 13 Number of children 2 Impression: The patient has low bone mass, based on the Left Total Hip T-score. The patient has an estimated ten-year risk of hip fracture of 9% and an estimated ten-year risk of major fracture of 26%, based on the WHO FRAX algorithm. The patient has risk factors, including: parental hip fracture, previous fracture. The BMD for the AP Spine (L2-L3) decreased, changing by -14.1% since the last DXA exam. The BMD for the Total Hip(Left) decreased, changing by -18.6% since the last DXA exam. Discussion: BONE DENSITY IS LOW AT ONE OR MORE SKELETAL SITES. THE PATIENT'S BMD AND CLINICAL RISK FACTORS CONTRIBUTE TO THIS PATIENT'S HIGH RISK OF FRACTURE. This patient's lowest T-score is low at one or more skeletal sites. It m
== END 2023-09-14 15:33 | disposition home or self-care (01) ==
LOC: ANHIMG 15:34
PROVIDERS: PCP Family Medicine; Visit Provider Family Medicine
DX: Z78.0 Asymptomatic menopausal state (principal); M85.88 Other specified disorders of bone density and structure, other site; M85.852 Other specified disorders of bone density and structure, left thigh
CPT/HCPCS: 77080

== ENCOUNTER 2024-09-05 07:22 | Outpatient (CLI) | payer MEDICARE, OTHER, SELFPAY ==
--- NOTE | ~2024-09-05 | US_ITS ---
RIGHT UPPER QUADRANT ABDOMINAL ULTRASOUND (Doppler ultrasound interrogation techniques used as needed for this exam.) Ordering provider: Emilie Peralta History: . Elevated liver enzymes . Comparison: None. FINDINGS: PANCREAS: Normal echotexture and size. PORTAL VEIN: Hepatopedal flow demonstrated. LIVER: Normal size and echotexture. No focal hepatic lesions or perihepatic fluid collections are ginny ntified. BILIARY DUCTS: No intra or extrahepatic biliary dilation. Common bile duct measures 8 mm in diameter which is normal for patient's age. GALLBLADDER: Status post cholecystectomy. RIGHT KIDNEY: Normal size. Measures 10.4 cm. No hydronephrosis, solid renal mass, renal calculi or pe rinephric fluid collections. No renal cysts. Aorta: Normal. IVC: Normal. FREE FLUID: None visualized within the upper abdomen. IMPRESSION: Status post cholecystectomy. Otherwise, normal right upper quadrant ultrasound. Reviewed, dictated and finalized at location A. R [employer] INS[employer]OR
== END 2024-09-05 07:23 | disposition home or self-care (01) ==
LOC: MICIMG 07:25
PROVIDERS: PCP Family Medicine
DX: R74.01 Elevation of levels of liver transaminase levels (principal); Z90.49 Acquired absence of other specified parts of digestive tract
CPT/HCPCS: 76705

== ENCOUNTER 2025-03-19 00:12 | Day surgery (SDC) | payer MEDICARE, OTHER, SELFPAY ==
[2025-03-13 15:02] VITALS: BMI 23.6
--- OUTSIDE RECORDS SUMMARY | 2025-03-19 00:15 | XMS_ITS | Continuity of Care Document ---
Author Name [facility] Organization [facility] Care Team Providers Care Food And Beverage Service Manager Name Role Phone [facility] Unavailable Unavailable Problems Combined list of problems from Department of Defense and Veterans Affairs facilities. It does not include entries that were removed or entered in error. 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, right eye Active Condition DoD Presence of intraocular lens Active Condition DoD PLANTAR FASCIITIS Active Condition DoD CARPAL TUNNEL SYNDROME Active Condition DoD BURSITIS ANSERINE Active Condition DoD BURSITIS TROCHANTERIC Active Condition DoD RHINITIS PURULENT Inactive Condition DoD Other Physical Therapy Inactive Condition DoD OSTEOARTHRITIS Active Condition DoD OSTEOARTHRITIS KNEE Active Condition Do D joint pain, localized in the knee Inactive Condition DoD Immunology Studies Nonspecific Abnormal Findings Inactive Condition DoD ARTHRITIS Active Condition DoD Orthopedic Aftercare For Healing Traumatic Fracture Inactive Condition DoD left ankle joint pain Inactive Condition DoD CLOSED FRACTURE FIFTH LEFT METATARSAL BASE Inactive Condition DoD Vaccines Prophylactic Need Against DTP Inactive Condition DoD NEUTROPENIA Active Condition DoD OSTEOPENIA Active Condition DoD Vaccines Prophylactic Need Against Viral Diseases Inactive Condition DoD Immunology Studies Raised Antibody Titer Inactive Condition 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 DoD POSTERIOR VITREOUS DETACHMENT LEFT EYE Active Condition DoD CONJUNCTIVITIS CHRONIC ALLERGIC Inactive Condition 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 DoD CERVICALGIA Active Condition DoD NEOPLASM - SOFT TISSUE TYPES ADIPOSE TISSUE LIPOMA Inactive Condition DoD ECZEMA DYSHIDROTIC Inactive Condition Do D TENDONITIS POSTERIOR TIBIAL RIGHT Active Condition DoD TENDONITIS ACHILLES RIGHT Inactive Condition DoD PLANTAR FASCIITIS RIGHT Active Condition DoD PREGLAUCOMA OCULAR HYPERTENSION Active Condition DoD visit for: issue repeat prescription for medication Inactive Condition DoD CONTACT DERMATITIS Inactive Condition Do D DEPRESSION Active Condition DoD VERTIGO Inactive Condition DoD VITAMIN D DEFICIENCY Active Condition D oD visit for: screening malignant neoplasm colon Inactive Condition DoD (Lower) Leg Localized Swelling Active Condition DoD PERIODONTITIS ACUTE Inactive Condition D oD Aftercare Following Surgery Of Sense Organs Inactive Condition 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 DoD CHOLEDOCHOLITHIASIS Inactive Condition D oD CT Abdominal Liver Nonspecific Abnormality Active Condition DoD NONSPECIFIC ABNORMAL RESULTS OF FUNCTION STUDIES Inactive Condition DoD CHOLEDOCHOLITHIASIS WITHOUT CHOLECYSTITIS Inactive Condition DoD GASTRIC AND DUODENAL DISORDERS Inactive Condition DoD abdominal pain Inactive Condition DoD CHOLELITHIASIS WITHOUT CHOLECYSTITIS Active Condition DoD ESOPHAGEAL REFLUX Active Condition DoD Serum Enzyme Levels - AST (SGOT) Elevated Inactive Condition DoD Serum Enzyme Levels - Alkaline Phosphatase Elevated Inactive Condition DoD ATYPICAL CHEST PAIN Inactive Condition D oD NECK SPRAIN Inactive Condition DoD HYPERTENSION (SYSTEMIC) Active Condition DoD Serum Enzyme Levels - ALT (SGPT) Elevated Inactive Condition DoD visit for: screening exam osteoporosis Inactive Condition DoD visit for: screening exam malignant neoplasm breast Inactive Condition DoD ROUTINE GYNECOLOGICAL EXAM WITH CERVICAL PAP SMEAR Inactive Condition DoD ACUTE BRONCHITIS Inactive Condition DoD REFRACTIVE ERROR Active Condition DoD HEMORRHOIDS EXTERNAL Inactive Condition w/ anal fissure: sitz bath; high fiber diet inc po lfuids; s/p colonoscopy 2004 wnl DoD HEAT EDEMA Inactive Condition elevate leg; DoD HIRSUTISM Inactive Condition DoD PSEUDOPHAKIA Active Condition Great r esults. Stop PF. New Rx = Mx provided. 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 Well controlled c TXE - CPM. DoD CATARACT SENILE NUCLEAR Active Condition IOL master performed. Pt ready for surgery DoD CANDIDIASIS VAGINAL Inactive Condition s/p antibiotic; monistat 3 ud DoD UPPER RESPIRATORY INFECTION ACUTE Inactive Condition r/o sinusiti s: sinus x-ray r/o Airfluid level is neg; see above DoD CELLULITIS OF THE FACE Inactive Condition R side; resolved DoD MIGRAINE HEADACHE Inactive Condition midrin ud D oD visit for: issue repeat prescription Inactive Condition refill l asix 20 mg qday prn edema; inc k In diet; still 1 refill w/ vaniqua for hirsutism DoD FIBROMYALGIA Active Condition DoD FINGER SPRAIN LEFT THUMB Inactive Condition carol wrap, elevate, apply cold DoD excessive facial or body hair (hirsutism) Inactive Condition meds o rdered through [facility]) DoD DRY EYE SYNDROME Inactive Condition arnav luvisc refill DoD CATARACT - PRESENILE Active Condition Observe D oD PREGLAUCOMA Active Condition Stable o n no meds. OCT unreliable today - will repeat on f/u DoD PRESBYOPIA Active Condition DoD ASTIGMATISM - REGULAR Active Condition DoD CATARACT Inactive Condition OD > OS; f /u ophtha DoD REFRACTIVE ERROR - MYOPIA Active Condition DoD NORMAL ROUTINE OPHTHALMOLOGICAL EXAM Inactive Condition DoD visit for: administrative purpose Inactive Condition Do D Vaccines Prophylactic Need Against Influenza Inactive Condition Do D Dietary Counseling Pertaining To Obesity Inactive Condition lose w t and disregard note below error DoD ALLERGIC RHINITIS Inactive Condition inc po flui ds; DoD LUMBAGO Active Condition w/ R SI du int pain:naprosyn 500 mg 1 bid pp wf; parafon dsc 1 tb po tid prn spasm; warm compress DoD IRRITABLE BOWEL SYNDROME Inactive Condition DoD PHARYNGITIS ACUTE Inactive Condition ce pacol w/ gargles DoD SINUSITIS ACUTE MAXILLARY Inactive Condition Continue allergy meds as directed DoD DYSFUNCTIONAL UTERINE BLEEDING Inactive Condition DoD BURSITIS Inactive Condition DoD TENDONITIS BICIPITAL WITH EXTENSIVE SYNOVIAL / BURSAL INFLAM Active Condition DoD MYALGIA AND MYOSITIS Active Condition flexeril refill ; exercises DoD Medications Combined list of outpatient medications from Department of Defense and Veterans Affairs facilities.Medications provided include 1) outpatient medications from the last 15 months, and 2) patient-reported medications. Medication Details Route Status Patient Instructions Prescription Expires Prescription Number Last Dispense Date Ordering Provider Order Date Order Qty Source atorvastati n 10 mg tablet See Instruct ana, # 90 EA, 1 total refill(s ), Acute Complet ed 12/27/2023 3 2023 90.0 Ambulat ory Pharmac y atorvastati n 10 mg tablet 10 mg, Oral, Daily, # 90 EA, 1 total refill(s ), Hard Stop Oral (given by mouth) Complet ed 07/11/2024 3 2023 90.0 Ambulat ory Pharmac y celecoxib 200 mg oral capsule TAKE ONE CAPSULE DAILY, # 90 EA, 1 total refill(s ), Acute Complet ed 05/04/2023 2 2022 90.0 Ambulat ory Pharmac y ciclopirox 8% topical solution [6.6mL] See Instruct ana, # 6.6 mL, 3 total refill(s ), Acute Complet ed 02/22/2024 3 2023 6.6 Ambulat ory Pharmac y cyclobenzap rine 10 mg tablet = 1 tab(s), Oral, TID, # 90 EA, 2 total refill(s ), Hard Stop Oral (given by mouth) Ordered 12/07/2025 5 2024 90.0 Ambulat ory Pharmac y cycloSPORIN E 0.05% ophthalmic emulsion INSTILL 1 DROP IN EYE(S) TWICE A DAY DIRECTED , # 180 EA, 3 total refill(s ), Acute Complet ed 09/12/2023 2 2022 180.0 Ambulat ory Pharmac y DULoxetine 30 mg oral delayed release capsule TAKE ONE CAPSULE DAILY DIRECTED , # 90 EA, 2 total refill(s ), Acute Discont inued 06/01/20232022 90.0 Ambulat ory Pharmac y DULoxetine 60 mg oral delayed release capsule TAKE ONE CAPSULE DAILY *TOTAL OF 90MG DAILY*, # 90 EA, 2 total refill(s ), Acute Complet ed 02/20/2024 3 2023 90.0 Ambulat ory Pharmac y DULoxetine DR 30 mg capsule See Instruct ions, # 90 EA, 3 total refill(s ), Hard Stop Ordered 08/14/2025 5 2024 90.0 Ambulat ory Pharmac y DULoxetine DR 30 mg capsule 30 mg, Oral, Daily, # 90 EA, 3 total refill(s ), Hard Stop Oral (given by mouth) Complet ed 05/03/2024 4 2023 90.0 Ambulat ory Pharmac y DULoxetine DR 60 mg capsule See Instruct ions, # 90 EA, 3 total refill(s ), Hard Stop Ordered 08/14/2025 5 2024 90.0 Ambulat ory Pharmac y DULoxetine DR 60 mg capsule See Instruct ions, Oral, # 90 EA, 3 total refill(s ), Hard Stop Oral (given by mouth) Complet ed 05/03/2024 4 2023 90.0 Ambulat ory Pharmac y gabapentin 300 mg capsule 600 mg, Oral, # 60 EA, 3 total refill(s ), Hard Stop Oral (given by mouth) Complet ed 04/11/2024 3 2023 60.0 Ambulat ory Pharmac y hydroxychlo roquine 200 mg tablet = 1 tab(s), Oral, Daily, # 90 EA, 1 total refill(s ), Hard Stop Oral (given by mouth) Ordered 07/05/2025 4 2023 90.0 Ambulat ory Pharmac y ketoconazol e 2% topical cream APPLY TOPICALL Y TO EXPOSED TOENAIL BED EVERY DAY DIRECTED , # 60 g, 1 total refill(s ), Acute Complet ed 02/22/2024 3 2023 60.0 Ambulat ory Pharmac y lidocaine 5% patch See Instruct ions, # 15 EA, 3 total refill(s ), Hard Stop Ordered 10/12/2025 5 2024 15.0 Ambulat ory Pharmac y lidocaine 5% topical film APPLY 1 PATCH TOPICALL Y DAILY NEEDED FOR PAIN *LEAVE ON MOST PAINFUL AREA FOR UP TO 12 HOURS PER DAY*, # 30 EA, 4 total refill(s ), Acute Complet ed 06/28/2023 2 2022 30.0 Ambulat ory Pharmac y montelukast 10 mg tablet 10 mg, TAKE ONE TABLET DAILY, # 90 EA, 1 total refill(s ), Acute Discont inued 06/01/2023 3 2022 90.0 Ambulat ory Pharmac y montelukast 10 mg tablet See Instruct ions, # 90 EA, 3 total refill(s ), Hard Stop Ordered 06/15/2025 5 2024 90.0 Ambulat ory Pharmac y montelukast 10 mg tablet 10 mg, Oral, Daily, # 90 EA, 3 total refill(s ), Hard Stop Oral (given by mouth) Complet ed 05/03/2024 4 2023 90.0 Ambulat ory Pharmac y nystatin topical [id number] units/g Powder [60g] See Instruct ions, # 60 g, 2 total refill(s ), Hard Stop Complet ed 05/03/2024 3 2023 60.0 Ambulat ory Pharmac y pantoprazol e EC 40 mg tablet 40 mg, Oral, every morning, # 90 EA, 1 total refill(s ), Hard Stop Oral (given by mouth) Discont inued 06/18/2024 4 2023 90.0 Ambulat ory Pharmac y pantoprazol e EC 40 mg tablet = 1 tab(s), Oral, every morning, # 90 EA, 1 total refill(s ), Soft Stop Oral (given by mouth) Ordered 5 2024 90.0 Ambulat ory Pharmac y pantoprazol e EC 40 mg tablet See Instruct ions, # 90 EA, 1 total refill(s ), Hard Stop Discont inued 02/21/2025 4 2024 90.0 Ambulat ory Pharmac y predniSONE 5 mg tablet See Instruct ions, # 90 EA, 4 total refill(s ), Hard Stop Ordered 12/07/2025 5 2024 90.0 Ambulat ory Pharmac y traMADol 50 mg tablet See Instruct ions, # 120 EA, 2 total refill(s ), Hard Stop Ordered 04/12/2025 5 2024 120.0 Ambulat ory Pharmac y Allergies, Adverse Reactions, Alerts Combined list of allergies from Department of Defense and Veterans Affairs facilities. It does not include entries that were removed or entered in error. Substance Category Reaction Severity Reaction type Status Date Reported Comments Source sulfa drugs Propensity to adverse reactions to drug Unknown Active 3 06/01/07 PAS [id number] reaction: Rash Unknown Organization [facility] Drug allergy (disorder) Unknown active 3 [facility] Immunizations Combined list of available immunizations from the Department of Defense and Veterans Affairs facilities. Immunization Series Date Given Administered By Site Reaction Lot Number CVX Code Drug Platform Beater Status Comments Source influenza, trivalent, adjuvanted 2016 KALLI SOTO () Not Given influenza , trivalent , adjuvante d DoD pneumococcal polysaccharid e PPV23 2016 KALLI SOTO () Not Given pneumococ gabriela polysacch aride PPV23 [facility] Pneumococcal conjugate PCV 13 2015 KALLI SOTO () Not Given Pneumococ gabriela conjugate PCV 13 [facility] Influenza, high dose seasonal 2015 KALLI SOTO () Not Given Influenza , high dose seasonal DoD tetanus, diphtheria, acellular pertu is 2012 zTeresa t Arm [id number] 115 sanofi pasteur complet ed tetanus, diphtheri a, acellular pertussis 01/09/13 Given Ambulat ory Pharmac y tetanus toxoid, reduced diphtheria toxoid, and acellular pertu is vaccine, adsorbed 1 2012 TASHA CARRERA P [id number] 115 Sanofi Pasteur ([facility]) complet ed tetanus toxoid, reduced diphtheri a toxoid, and acellular pertussis vaccine, adsorbed DoD zoster vaccine live 2012 zzLef t Arm [id number] [employer] complet ed zoster vaccine live 11/01/12 Given Ambulat ory Pharmac y influenza virus vaccine,split 2012 zzLef t Arm [id number] 15 sanofi pasteur complet ed influenza virus vaccine,s plit 11/01/12 Given Ambulat ory Pharmac y influenza virus vaccine, split virus (incl. purified surface antigen)-reti red CODE 1 2012 MANPREET JARRETT [id number] 15 Sanofi Pasteur ([facility]) complet ed influenza virus vaccine, split virus (incl. purified surface antigen)- retired CODE DoD zoster vaccine, live 1 2012 MANPREET JARRETT [id number] Merck ([facility]) complet ed zoster vaccine, live DoD influenza virus vaccine,split 2005 zzLef t Arm [id number] 15 sanofi pasteur complet ed influenza virus vaccine,s plit 10/03/06 Given Ambulat ory Pharmac y influenza virus vaccine, split virus (incl. purified surface antigen)-reti red CODE 1 2005 PARISH CARRERABERTA P [id number] 15 Sanofi Pasteur ([facility]) complet ed influenza virus vaccine, split virus (incl. purified surface antigen)- retired CODE DoD influenza virus vaccine,split 2004 zzLef t Arm [id number] 15 sanofi pasteur complet ed influenza virus vaccine,s plit 10/04/05 Given Ambulat ory Pharmac y influenza virus vaccine, split virus (incl. purified surface antigen)-reti red CODE 1 2004 MAURIZIO WHATLEY [id number] 15 Sanofi Pasteur ([facility]) complet ed influenza virus vaccine, split virus (incl. purified surface antigen)- retired CODE DoD Encounters Combined list of: 1) Encounters from Department of Veterans Affairs facilities going backup to the last 18 months, not all VA inpatient encounters are included; 2) Encounters from the Department of Defense facilities going backup to 280 months. Location Location Details Encounter Type Encounter Number Reason For Visit Attending Provider ADM Date [place] Date Status [place] [facility] [place] [facility] [place] [id number] REFILL MEDS/DI SCUSS MENOPAU JAKOB ACTIVIT ITY FABIOLA ROBERTSON 06/17 Released w/o Limitations [facility] [place] [place] [facility] [place] [facility] [place] TELE CONSULT [id number] labs [facility]ABIOLA ROBERTSON 06/26 [employer] [facility] [place] [place] [place] [facility] [place] [facility] [place] [id number] renew meds FABIOLA ROBERTSON 10/09 Released w/o Limitations [facility] [place] [place] [place] [facility] [place] [facility] [place] [place] [id number] right arm pain JESUSJUANAPAT F 12/31 Released w/o Limitations [facility] [place] [place] [facility] [place] [facility] [place] [id number] sick appt MELINA CASEY 03/15 Released w/o Limitations [facility] [place] [place] [place] [facility] OUTPATIENT [id number] sinus infecti on MAL WERNER Marina 08/04 Rele[place] w/o Limitations [facility] [place] [place] [place] [place] [facility] [place] OUTPATIENT [id number] FOLLOW UP FOR MEDS, FM FABIOLA ROBERTSON S 08/11 [place] w/o Limitations [facility] [place] [place] [facility] [place] [facility] [place] [place] [id number] flu MAURIZIO WHATLEY 10/04 [place] w/o Limitations [facility] [place] [place] [place] [facility] [place] OUTPATIENT [id number] tscreen WHITNEY COLES 10/04 [place] w/o Limitations [facility] [place] [place] [facility] [place] [facility] [place] OUT[place] [id number] EYE EXAM YOANDY SORENSEN S 10/28 [place] w/o Limitations [facility] [place] [place] [facility] [place] [id number] v/f YOANDY SORENSEN S 11/09 [place] w/o Limitations [facility] [place] [place] [place] [facility] [place] [id number] PREGLAU COMA GAL BAL 11/09 [place] w/o Limitations [facility] [place] [facility] [place] [place] [id number] med refill MARIA ISABEL TOLEDO P 03/30 Released w/o Limitations [facility] [place] [place] [place] [facility] [place] [place] [id number] card/DE S/OHT [facility] 06/02 Released w/o Limitations [facility] [place] [place] [facility] [place] OUTPATIENT [id number] left hand and thumb in pain CINDI FRANCO 08/01 Released w/o Limitations [facility] [place] [place] [place] [place] [facility] [place] OUTPATIENT [id number] Flu TASHA CARRERA P 10/03 Released w/o Limitations [facility] [place] [place] [facility] [place] [facility] [place] OUTPAT[facility] [id number] poss med refills FABIOLA ROBERTSON 10/03 Released w/o Limitations [facility] [place] [place] [place] [facility] [place] OUTPAT[facility] [id number] PT C/O MIGRAIN ES. FABIOLA ROBERTSON 11/21 Released w/o Limitations [facility] [place] [place] [place] [place] [facility] [place] OUTPATIENT [id number] C/O ER VISIT. RIGHT SIDE OF FACE SWOLLEN - F/U FABIOLA ROBERTSON 12/06 Released w/o Limitations [facility] [place] [place] [place] [place] [facility] [place] OUTPATIENT [id number] need appt FABIOLA ROBERTSON 12/07 Released w/o Limitations [facility] [place] [place] [place] [place] [facility] [place] OUTPATIENT [id number] f/u FABIOLA ROBERTSON 12/16 Released w/o Limitations [facility] [place] [place] [place] [place] [facility] [place] TELE CONSULT [id number] paper work for shayy dillon FABIOLA ROBERTSON 03/03 [facility] [place] [place] [place] [facility] OUT[facility] [id number] problem with catarac t GAL [facility] 03/21 Released w/o Limitations [facility] [place] [place] [facility] OUTPATIENT [id number] preop phaco:I OL needed GAL [facility] 04/14 Released w/o Limitations [facility] [place] [place] [place] [facility]) OUTPATIENT [id number] post phaco for PERCY Connors 04/21 Released w/o Limitations [facility] [place] [id number] GAL BAL 05/05 Released w/o Limitations [facility] [place] OUTPATIENT [id number] postsur gical state of eye and adnexa [facility] 05/30 Released w/o Limitations [facility](Oph thalmol [facility] [place] OUTPATIENT [id number] MED REFILL FOR ALLERGY /WATER RETENTI ON/HAIR REMOVAB LE ON FACE HORACIO ROBERTSONISA S 06/01 Released w/o Limitations [facility] [place] TELE CONSULT [id number] Rx eyeglas ses [facility] 06/27 [facility](Oph thalmol [facility]gy [facility] OUTPATIENT [id number] check RX [facility] 07/03 Released w/o Limitations [facility]mol [facility] [place] OUTPATIENT [id number] PT C/O OF SORE THROAT, EAR PAIN ORBETA XANDER A 10/05 Released w/o Limitations [facility] [place] [place] [facility] TELE CONSULT [id number] [facility] breast cancer screeni GUILLERMO Farooq 10/10 [facility] [place] [facility] [place] OUTPATIENT [id number] med refill HANSENJACKIEO V 10/28 Released w/o Limitations [facility] [place]) [facility] [place] OUTPATIENT [id number] PAP/ORD ER FOR MAMMO FABIOLA ROBERTSON 11/08 Released w/o Limitations [facility] [place] [place] [place] [facility] [place] TELE CONSULT [id number] lab results FABIOLA ROBERTSON 11/27 [facility] [place] [facility] [place] [place] [facility] OUTPATIENT [id number] poag(s) OD/pseu dophaki a OD mild NSC OS [facility] 12/26 Released w/o Limitations [facility] [place] [place] [facility] [place] OUTPATIENT [id number] F/U FIBROMY PAT REDDING 01/23 Released w/o Limitations [facility] [place] [place] [place] [facility] [place] OUTPATIENT [id number] rx refill and stiff neck MICHAEL HOWARD 04/23 Released w/o Limitations [facility] [place] [place] [place] [facility] [place] OUTPATIENT [id number] heartbu OUSMANE Miller 05/27 Released w/o Limitations [facility] [place] [place] [place] [facility] [place] TELE CONSULT [id number] Elevate d LFT's SUDHEER FRANZ 05/28 [facility] [place] [place] [place] [facility] [place] TELE CONSULT [id number] Returni ng your call concern ing lab results from 01/26/08. OUSMANE NAVARRO 05/29 [facility] [place] [place] [place] [facility] [place] OUTPATIENT [id number] F\U ON LABWORK . FABIOLA ROBERTSON 06/13 Released w/o Limitations [facility] [place] [place] [place] [facility] [place] OUTPATIENT [id number] f/u ultraso und FABIOLA ROBERTSON 06/26 Released w/o Limitations [facility] [place] [place] [place] OUTPATIENT [id number] CHOLELI THIASIS WITHOUT CHOLECY STITIS ANASTASIIA APONTE R 07/18 Released w/o Limitations [facility] [place] [place] [place] OUTPATIENT [id number] egd ANASTASIIA APONTE R 08/02 Released with Work/Duty Limitations [facility] [place] [facility] [place] TELE CONSULT [id number] med refill FABIOLA ROBERTSON S 08/13 [facility] [place] [place] ADMISSION RESULTING FROM [facility], DIRECT TO [facility] [id number] ANASTASIIA APONTE R 08/20 DISCHARGED HOME [facility] [place]([facility] INPATIENT [id number] inpatie nt/ERCP CINDI VASQUEZ 08/21 Inpatient- Still a Patient [facility] [facility] [place] IN[facility] [id number] inpatie nt CINDI VASQUEZ 08/29 Inpatient- Still a Patient [facility] [place](Gen Surgery/P rocto Clinic [place]CP) OUTPATIENT [id number] FOL MAYELA ANASTASIIA APONTE R 09/06 Released w/o Limitations [facility](Gen Surgery /Procto Clinic [place]) [facility] [place] OUTPATIENT [id number] water retenti on meds low FABIOLA ROBERTSON S 11/14 Released w/o Limitations [facility] [place](Ophthal mology (Visual [place])) OUTPATIENT [id number] 24-2/Dr Jay aldana 13 Jan 1500 OUSMANE GREENBERG 01/07 Released w/o Limitations [facility](Oph thalmol ogy (Visual [place]ard) ) [facility](Ophthal mology [place]) OUTPATIENT [id number] poag(s) /cat os/read vf/need s OCT/Lev ine pt FRANKIE POSADA 01/13 Released w/o Limitations [facility]Oph thalmol [facility]gy [facility]) [facility] [place] OUTPATIENT [id number] SORE THROAT LISBETH FERMIN 01/27 Released w/o Limitations [facility] [place](Ophthal mology [facility]) OUTPATIENT [id number] catarac t discuss surgery BALGAL BERTRAND M 03/03 Released w/o Limitations [facility](Oph thalmol [facility]gy [facility]) [facility] [place] OUTPATIENT [id number] MED REFILL FOR BLOOD CINDI KEYS 03/29 Released w/o Limitations [facility] [place](Ophthal mology [facility]) OUTPATIENT [id number] Preop Phaco OS BAL, GAL M 03/31 Released w/o Limitations [facility]Oph thalmol [facility]gy [facility]) [facility](Ophthal mology [facility]) OUTPATIENT [id number] f/u 1 day post-op BALGAL M 04/22 Released w/o Limitations [facility]Oph thalmol [facility]gy [facility]) [facility](Ophthal mology [facility]) OUTPATIENT [id number] f/u post-op BAL, GAL M 04/29 Released w/o Limitations [facility]Oph thalmol ogy [facility]) [facility] [place] OUTPATIENT [id number] FABIOLA TINOCO 05/08 Released w/o Limitations [facility] [place](Ophthal mology [facility]) OUTPATIENT [id number] 1 month post cat surg BALGAL BERTRAND M 05/27 Released w/o Limitations [facility](Oph thalmol [facility]gy [place]) [facility] [place] OUTPATIENT [id number] LUMP ON GUMS XANDER MONGE A 06/15 Released w/o Limitations [facility] [place] [place]) TELE CONSULT [id number] [facility] breast cancer screeni AISHA Romero 08/25 [facility] [place]) [facility] [place]) TELE CONSULT [id number] med refill, Lasix FABIOLA RBOERTSON S 10/20 [facility] [place]) [facility] [place] OUTPATIENT [id number] PAP FABIOLA ROBERTSON S 11/04 Released w/o Limitations [facility] [place]) [facility] [place]) TELE CONSULT [id number] vit D result FABIOLA ROBERTSON S 11/13 [facility] [place]) [facility] [id number] 6 mos post cat/poa g(s) jul (bkd card) GAL BAL 12/23 Released w/o Limitations [facility](Oph thalmol ogy NMCP) [facility] [place] OUTPATIENT [id number] allergi es,sore throat, ear pain BRANDI MATTSON 03/04 Released w/o Limitations [facility] [place]) [facility] [place] OUTPATIENT [id number] POSSIBL E SINUS INFECTI ON FABIOLA ROBERTSON S 03/17 Released w/o Limitations [facility] [place]) [facility] [place] OUTPATIENT [id number] CINDI Sharma 04/17 Released w/o Limitations [facility] [place]) [facility] [place]) TELE CONSULT [id number] Med refill FABIOLA ROBERTSON 05/15 [facility] [place]) [facility] [place]) OUTPATIENT [id number] Depress FABIOLA Pedersen 06/02 Released w/o Limitations [facility] [place]) [facility] [place]) TELE CONSULT [id number] med refill FABIOLA ROBERTSON 08/11 [facility] [place]) [facility] [place]) OUTPATIENT [id number] Med Refill/ GILBERTO Whitten 10/14 Released w/o Limitations [facility] [place]) [facility](Ophthal mology NMCP) OUTPATIENT [id number] annual fu POAQ(S) pseudop sapnaa-n eeds JUL GAL BAL 12/23 Released w/o Limitations [facility](Oph thalmol ogy NMCP) [facility] [place] T3) TELE CONSULT [id number] Pt. need Refill for FABIOLA Chavez 01/27 [facility](P [place] T3) [facility](P [place] T3) OUTPATIENT [id number] ANNUAL PAP SMEAR [id number] FABIOLA ROBERTSON Katie 02/09 Released w/o Limitations [facility] [place] T3) [facility](Podiatr y NMCP) OUTPATIENT [id number] PLANTAR FASCIIT IS RIGHT OBEY REYNOSO Y 03/18 Released with Work/Duty Limitations [facility](Pod iatry NMCP) [facility] [place] T[facility]) TELE CONSULT [id number] medicat ion refill GODFREY ACEVES 04/16 [facility] [place] T3) [facility](Podiatr y NMCP) OUTPATIENT [id number] f,u OBEY REYNOSO Y 05/04 Released w/o Limitations [facility] [place] [place] [facility]) OUTPATIENT [id number] F/U WATER RETENTI ON, HAIR CONCERN S ON CHIN AND LIP LAST SEEN: CINDI FRANCO 05/30 Released w/o Limitations [facility] [place] [facility](Podiatr y [place] OUTPATIENT [id number] 6 WKF/U OBEY REYNOSO Y 06/15 Released w/o Limitations [facility] [place]) [facility](Podiatr y [place]) OUTPATIENT [id number] 6 WK F/U OBEY REYNOSO Y 07/29 Released with Work/Duty Limitations [facility] [place] [facility] [place] T[facility]) OUTPATIENT [id number] LUMP ON BACK OF NECK ON LEFT SIDE BELOW [place] E FABIOLA ROBERTSON 08/10 Released w/o Limitations [facility](P [place] T[facility]) [facility](Podiatr y [place]) OUTPATIENT [id number] OBEY REYNOSO Y 09/08 Released w/o Limitations [facility] [place]) [facility] [place] T[facility]) TELE CONSULT [id number] medicat ion refill FABIOLA ROBERTSON 10/13 [facility] [place] [facility](Ortho Spine [place]) OUTPATIENT [id number] FIBROMY DASHA INFANTE 10/14 Released w/o Limitations [facility](Ort ho Spine NMCP) [facility] [place] T[facility]) TELE CONSULT [id number] med refill FABIOLA ROBERTSON 01/17 [facility] [place] [facility](Ophthal mology [place]) OUTPATIENT [id number] POAG(S) /OCT (CARD) GAL BAL 02/08 Released w/o Limitations [facility](Oph thalmol ogy [place]CP) [facility]) OUTPATIENT [id number] FLOATER S GAL KIM 03/08 Released w/o Limitations [facility](Oph thalmol ogy [place]CP) [facility](Podiatr y [place]) OUTPATIENT [id number] JUAN J REYNOSOKhadar [place] 03/13 Released w/o Limitations [facility](Pod iatry NMCP) [facility] [place] T3) TELE CONSULT [id number] Notes Entered by: Marina GARCIA 28 Apr 2012 8516 ------- ------- ------- ------- -- Relay formerly [facility] FABIOLA ROBERTSON 04/28 [facility] [place] T3) [facility] [place] T3) OUTPATIENT [id number] sorethr oat longer than 2 weeks/s tiff neck ROQUE ARCE 05/20 Released w/o Limitations [facility] [place] T3) [facility](Ophthal mology NMCP) OUTPATIENT [id number] NEW PVD () FRANKIE POSADA 06/13 Released w/o Limitations [facility](Oph thalmol ogy NMCP) [facility](Ortho Spine NMCP) OUTPATIENT [id number] Cervica DASHA Neil 06/15 Released w/o Limitations [facility](Ort ho Spine NMCP) [facility](Rheumat ology [place]CP) OUTPATIENT [id number] HERNIAT ED INTERVE RTEBRAL DISC LUMBAR MARY IBARRA 07/11 Released w/o Limitations [facility](Rhe umatolo gy [facility]) [facility] [place] [facility] TELE CONSULT [id number] Notes Entered by: DANIEL ROBERTSON 19 Jul 2012 3769 ------- ------- ------- ------- -- Physica l therapy FABIOLA ROBERTSON 07/19 [facility] [place] T[facility]) [facility] Referral Clinic) TELE CONSULT [id number] Notes Entered by: RENITA HUDDLESTON 24 Jul 2012 0828 ------- ------- ------- ------- -- Signatu re Request P.T.-do s: 07.18.1 2-Order #: [id number] YAZMIN ROQUE C 07/24 [facility]) [facility] [place] T3) TELE CONSULT [id number] Notes Entered by: Jacky BLACK 29 Jul 2012 1226 ------- ------- ------- ------- -- Letter of medical necessi ty. DONYA LOZADA 07/29 [facility] [place] T[facility]) [facility] [place] T2) TELE CONSULT [id number] Notes Entered by: Lila GRAYSON 07 Aug 2012 1429 ------- ------- ------- ------- -- Physica l therapy ciera s note signed YESENIA GRAYSON 08/07 [facility] [place] T2) [facility] [place] T3) TELE CONSULT [id number] Notes Entered by: Jacky BLACK 05 Sep 2012 0820 ------- ------- ------- ------- -- Physica l Therapy notes. DONYA LOZADA 09/05 [facility] [place] T[facility]) [facility] [place] T[facility]) TELE CONSULT [id number] Notes Entered by: Jacky GILLIS 19 Oct 2012 1135 ------- ------- ------- ------- -- Populat ion [facility] Cholest edouard Managem ent AISHA GILLIS 10/19 [facility] [place] T[facility]) [facility] [place] T[facility]) TELE CONSULT [id number] Notes Entered by: Jacky GILLIS 30 Oct 2012 1516 ------- ------- ------- ------- -- Populat [facility] Diabete s managem ent AISHA GILLIS 10/30 [facility] [place] T[facility]) [facility]) OUTPATIENT [id number] MARY IBARRA 11/01 Released w/o Limitations [facility](Rhe umatolo gy [facility]) [facility](Immuniz ation [facility]) OUTPATIENT [id number] Notes Entered by: LUCIEN ROACH 01 Nov 2012 0926 ------- ------- ------- ------- -- MANPREET Lim 11/01 Released w/o Limitations [facility](Imm unizati on [facility]) [facility]) TELE CONSULT [id number] Notes Entered by: RAUL SALAS 08 Nov 2012 0753 ------- ------- ------- ------- -- Gloria cesar not entered MARY IBARRA 11/08 [facility](Rhe umatolo gy [facility]) [facility] [place] T[facility]) TELE CONSULT [id number] Notes Entered by: ANTONIETTA PRYOR 16 Nov 2012 0821 ------- ------- ------- ------- -- [facility]- med refill FABIOLA ROBERTSON Katie 11/16 [facility] [place] T3) [facility](P [place] T3) OUTPATIENT [id number] pap smear FABIOLA ROBERTSON Katie 11/28 Released w/o Limitations [facility] [place] T3) [facility](Endocri nology [facility]) OUTPATIENT [id number] OSTEOPO LEONOR MILLIGAN 12/07 Released w/o Limitations [facility](End ocrinol ogy NMCP) [facility](P [place] T3) TELE CONSULT [id number] Notes Entered by: Jacky BLACK 07 Dec 2012 1346 ------- ------- ------- ------- -- PT note. DONYA LOZADA 12/07 [facility] [place] T3) [facility](P [place] T3) TELE CONSULT [id number] Notes Entered by: AILYN HORACIOSAIRA Wilson 15 Dec 2012 1159 ------- ------- ------- ------- -- Bone dexa scan result FABIOLA ROBERTSON Katie 12/15 [facility] [place] T3) [facility](P [place] T3) OUTPATIENT [id number] review results FABIOLA ROBERTSON Katie 01/08 Released w/o Limitations [facility] [place] T3) [facility] Referral [facility]) TELE CONSULT [id number] Notes Entered by: IFRAH CATHERINE 09 Jan 2013 0945 ------- ------- ------- ------- -- Neuro Sleep Consult - DOS:. .13 - Order#: [id number] MARY IBARRA 01/09 [facility](Immuniz ation [place]) OUTPATIENT [id number] Notes Entered by: ILZZIE HANKINS 09 Jan 2013 1124 ------- ------- ------- ------- -- ashley TASHA CARRERA Olya 01/09 Released w/o Limitations [facility](Imm unizati on [place]) [facility](Rheumat ology [place]CP) OUTPATIENT [id number] f/u MARY IBARRA 02/07 Released w/o Limitations [facility](Rhe umatolo gy NMCP) [facility](Acute Care Ortho NMCP) OUTPATIENT [id number] Notes Entered by: LIZZIE STEVE 04 Mar 2013 1623 ------- ------- ------- ------- -- left GOLDY Cummings 03/04 Released w/o Limitations [facility](Acu te Care Ortho NMCP) [facility](Emergen cy Medicine [place]CP) OUTPATIENT [id number] DEENA GONZALEZ 03/04 Released w/o Limitations [facility](Kirsten rgency Medicin e NMCP) [facility] [place] T[facility]) OUTPATIENT [id number] left base metarsa ls FX FABIOLA ROBERTSON 03/08 Released w/o Limitations [facility](P [place] T3) [facility] [place] T[facility]) TELE CONSULT [id number] Notes Entered by: SA ABBY LANZA 20 Mar 2013 1210 ------- ------- ------- ------- -- Medical equiptm ent FABIOLA ROBERTSON 03/20 [facility] [place] T[facility]) [facility](Fractur e/Trauma Clinic [facility]) OUTPATIENT [id number] 5th MT fx comminu SANAM Morris 03/21 Released with Work/Duty Limitations [facility](Fra cture/T rauma [facility]) [facility] [place] T3) TELE CONSULT [id number] Notes Entered by: Marina GARCIA 04 Apr 2013 1009 ------- ------- ------- ------- -- (admin box) [facility]- med FABIOLA Guzman 04/04 [facility] [place] T3) [facility](Fractur e/Trauma Clinic [facility]) OUTPATIENT [id number] f/u lt foot SANAM Devi 04/25 Released w/o Limitations [facility](Fra cture/T rauma [facility]) [facility](Rheumat ology [place]) OUTPATIENT [id number] F/U HERNIAT ED INTERVE RTEBRAL DISC LUMBAR ONEYDA FORRESTER 05/08 Released w/o Limitations [facility](Rhe umatolo gy NMCP) [facility](Rheumat ology [place]) OUTPATIENT [id number] f/u ONEYDA FORRESTER F 06/11 Released w/o Limitations [facility](Rhe umatolo gy [place]CP) [facility] [place] T3) TELE CONSULT [id number] Notes Entered by: ROLA HAMPTON V 14 Jun 2013 0858 ------- ------- ------- ------- -- [facility]- Appoint SHAILESH Cain V 06/14 [facility] [place] T3) [facility] [place] T3) OUTPATIENT [id number] f/u FABIOLA ROBERTSON 06/19 Released w/o Limitations [facility] [place] T3) [facility](Otolary ngology [place]) OUTPATIENT [id number] IMMUNOL OGY STUDIES NONSPEC [facility] L FINDING S [place] TRAN 06/26 Released w/o Limitations [facility](Louis laryngo logy NMCP) [facility](P [place] T3) TELE CONSULT [id number] Notes Entered by: Jacky BLACK 02 Jul 2013 0721 ------- ------- ------- ------- -- [facility] - knee pain AILYN FABIOLA Katie 07/02 [facility] [place] T[facility]) [facility] [place] T[facility]) OUTPATIENT [id number] f/u X-Ray/L abs/Ref erral FABIOLA ROBERTSON Katie 07/08 Released w/o Limitations [facility] [place] T[facility]) [facility] [place] T[facility]) TELE CONSULT [id number] Notes Entered by: ENOCH EDEN 20 Jul 2013 1358 ------- ------- ------- ------- -- [facility] - medicat ion refill AILYNHORACIOEVANS Wilson 07/20 [facility] [place] T[facility]) [facility] [place] T[facility]) TELE CONSULT [id number] Notes Entered by: Jacky GILLIS 08 Aug 2013 1128 ------- ------- ------- ------- -- [facility] refill AILYN HORACIOEVANS Wilson 08/08 [facility] [place] T[facility]) [facility](Rheumat ology [place]) OUTPATIENT [id number] F/U ONEYDA FORRESTER 08/14 Released w/o Limitations [facility](Rhe umatolo gy [place]) [facility] [place] T[facility]) TELE CONSULT [id number] Notes Entered by: Marina GARCIA 15 Aug 2013 1106 ------- ------- ------- ------- -- [facility]- FABIOLA Peters 08/15 [facility](M[facility] [place] T3) [facility](Improvement Rn [facility] [place]) OUTPATIENT [id number] LUMBAGO WITH SCIATIC A ANTONIA RUBALCAVA 09/27 Released w/o Limitations [facility](Phy s Ther [facility] [place]) [facility](Improvement Rn [facility] [place]) OUTPATIENT [id number] joint pain, localiz ed in the knee ANTONIA RUBALCAVA 09/27 Released w/o Limitations [facility](Phy s Ther [facility] [place]) [facility](Improvement Rn [facility] [place]) OUTPATIENT [id number] Pas entered the order ORALIA HUBER 10/01 Released w/o Limitations [facility](Phy s Ther [facility] [place]) [facility](P [place] T3) TELE CONSULT [id number] Notes Entered by: GARRY RIDLEY 25 Oct 2013 1032 ------- ------- ------- ------- -- [facility]( ADMIN) : med refill FABIOLA ROBERTSON 10/25 [facility](P [place] T3) [facility](P [place] T3) OUTPATIENT [id number] C/O Cough and sore throat FABIOLA ROBERTSON 10/30 Released w/o Limitations [facility](P [place] T3) [facility](P [place] T3) TELE CONSULT [id number] Notes Entered by: GARRY RIDLEY 15 Nov 2013 0835 ------- ------- ------- ------- -- [facility]: med refill FABIOLA ROBERTSON 11/15 [facility] [place] T3) [facility] OUTPATIENT [id number] HAO HEREDIA 11/18 Released w/o Limitations [facility](Kirsten rgency Medicin e [place]) [facility] [place] T3) TELE CONSULT [id number] Notes Entered by: Krishna ZAMBRANO 20 Nov 2013 1003 ------- ------- ------- ------- -- Er visit MOI ZAMBRANO 11/20 [facility](M[facility] [place] T3) [facility](P [place] T3) TELE CONSULT [id number] Notes Entered by: DERICK VALLE 20 Jan 2014 0704 ------- ------- ------- ------- -- RH - Med Refill FABIOLA ROBERTSON 01/20 [facility] [place] T3) [facility](P [place] T3) TELE CONSULT [id number] Notes Entered by: Krishna ZAMBRANO 22 Jan 2014 0836 ------- ------- ------- ------- -- Relay health FABIOLA ROBERTSON 01/22 [facility] [place] T3) [facility](P [place] T3) TELE CONSULT [id number] Notes Entered by: NAHID MCCULLOUGH 05 Feb 2014 0714 ------- ------- ------- ------- -- [facility]/ Refill FABIOLA ROBERTSON 02/05 [facility] [place] T3) [facility]) OUTPATIENT [id number] f/u ONEYDA FORRESTER 02/06 Released w/o Limitations [facility]) [facility] [place] T[facility]) TELE CONSULT [id number] Notes Entered by: HEIDI DO 22 Feb 2014 1002 ------- ------- ------- ------- -- Med refill- [facility] AILYN HORACIOEVANS Wilson 02/22 [facility] [place] T[facility]) [facility] [place] T[facility]) TELE CONSULT [id number] Notes Entered by: HEIDI DO 26 Feb 2014 0748 ------- ------- ------- ------- -- Med refill- relay health AILYN HORACIOEVANS Wilson 02/26 [facility] [place] T[facility]) [facility]) OUTPATIENT [id number] knee with cdr ONEYDA Noble 03/01 Released w/o Limitations [facility]) [facility]) TELE CONSULT [id number] Notes Entered by: MARTI GUILLAUME 04 Mar 2014 0933 ------- ------- ------- ------- -- Post injecti on ONEYDA FORRESTER 03/04 [facility]) [facility](P [place] T3) TELE CONSULT [id number] Notes Entered by: GARRY RIDLEY 13 Mar 2014 0804 ------- ------- ------- ------- -- [facility]: (admin) med refill FABIOLA ROBERTSON 03/13 [facility] [place] T[facility]) [facility] [place] T[facility]) OUTPATIENT [id number] SINUS PAIN AND PRESSUR E, EAR PAIN, SORE THROAT X 2 DAYS FABIOLA ROBERTSON 05/03 Released w/o Limitations [facility] [place] [facility] [place] [facility]) TELE CONSULT [id number] Notes Entered by: Jacky BLACK 25 Jun 2014 1706 ------- ------- ------- ------- -- [facility] - medicat ion LIYAHHORACIO BENSONEVANS Wilson 06/25 [facility] [place] [facility] [place] [facility]) TELE CONSULT [id number] Notes Entered by: DANIEL ROBERTSON 23 Aug 2014 1335 ------- ------- ------- ------- -- Lab results AILYNHORACIOEVANS Wilson 08/23 [facility] [place] [facility] [place] [facility]) OUTPATIENT [id number] ANXIETY /DEPRES YESSY ,WORSEN ING X 2 DAYS FABIOLA ROBERTSON Katie 08/30 Released w/o Limitations [facility] [place] [facility]) [facility] [place] [facility]) TELE CONSULT [id number] Notes Entered by: Jacky BLACK 09 Sep 2014 0712 ------- ------- ------- ------- -- [facility] - questio n LIYAHHORACIO BENSONEVANS [place] 09/09 [facility] [place] [facility] [facility] [facility] [place] [facility] [facility] TELE CONSULT [id number] Notes Entered by: HERIBERTO BARNHART 17 Sep 2014 0929 ------- ------- ------- ------- -- Nurse Line F/U HERIBERTO HICKS 09/17 [facility] [place] [facility] [place] [facility]) [facility] [place] [facility] Rn [facility] [place]) OUTPATIENT [id number] PLANTAR FASCIIT IS ANTONIA RUBALCAVA 10/04 Released w/o Limitations [facility](Phy s Ther [facility] [place]) [facility] [place] T3) TELE CONSULT [id number] Notes Entered by: Krishna ZAMBRANO 04 Oct 2014 0820 ------- ------- ------- ------- -- [facility] [place] T3) [facility] [place] T[facility]) TELE CONSULT [id number] Notes Entered by: NOAH GUPTA 08 Oct 2014 0856 ------- ------- ------- ------- -- [facility]- med FABIOLA Ramos 10/08 [facility] [place] T3) [facility] [place] T[facility]) TELE CONSULT [id number] Notes Entered by: AMADOU JACOBO 16 Oct 2014 1345 ------- ------- ------- ------- -- needs prescri magalie ayala AILYN HORACIOEVANS S 10/16 [facility] [place] T3) [facility](Derm - [facility]) OUTPATIENT [id number] [employer] ROSE MARIE GOYAL 10/21 Released w/o Limitations [facility](Ar m - [facility]) [facility](Ophthal mology [facility]) OUTPATIENT [id number] GAL MARTINEZ 10/31 Released w/o Limitations [facility](Oph thalmol ogy [facility]) [facility] [place] T[facility]) TELE CONSULT [id number] Notes Entered by: SUDHEER FRANZ 12 Nov 2014 1741 ------- ------- ------- ------- -- [facility] request for medicat ions FABIOLA ROBERTSON 11/12 [facility](P [place] T3) [facility] [place] T[facility]) TELE CONSULT [id number] Notes Entered by: RAISA STODDARD 02 Jan 2015 0929 ------- ------- ------- ------- -- [facility] FABIOLA ROBERTSON 01/02 [facility] [place] T3) [facility](Rheumat ology [facility]) OUTPATIENT [id number] f/u Fibro/ possibl e knees and hips injecti on CINDI BOOKER JOHN 02/24 Released w/o Limitations [facility](Rhe umatolo gy [facility] [place](Rheumat ology [facility]) TELE CONSULT [id number] Notes Entered by: Melvin FLOWERS 25 Feb 2015 0902 ------- ------- ------- ------- -- F/U CALL INJECTI ON CINDI BOOKER JOHN 02/25 [facility](Rhe umatolo gy [facility] [place]) [facility](Rheumat ology [facility]) OUTPATIENT [id number] F/U bilater al knees/p es ansenzo palomoa CINDI BOOKER JOHN 03/03 Released w/o Limitations [facility](Rhe umatolo gy [place]) [facility](Rheumat ology [facility]) TELE CONSULT [id number] Notes Entered by: Jessika GILES 04 Mar 2015 0924 ------- ------- ------- ------- -- F/U CALL ON INJECTI ON FROM [id number] 15. CINDI BOOKER JOHN 03/04 [facility] umatolo gy [facility] [place]) [facility] [place] T3) TELE CONSULT [id number] Notes Entered by: NOAH GUPTA 05 Apr 2015 1508 ------- ------- ------- ------- -- - NOAH Calixto 04/05 Referred for Appointment [facility] [place] T[facility]) [facility] [place] T[facility]) OUTPATIENT [id number] med refill FABIOLA ROBERTSON 05/05 Released w/o Limitations [facility] [place] T[facility]) [facility](Endocri nology [facility]) OUTPATIENT [id number] OSTEOPE LEONOR LE 05/16 Released w/o Limitations [facility](End ocrinol ogy [facility]) [facility] [place] T[facility]) TELE CONSULT [id number] Notes Entered by: DANIEL ROBERTSON 22 May 2015 0654 ------- ------- ------- ------- -- Bone density scan results FABIOLA ROBERTSON 05/22 [facility] [place] T[facility]) [facility](P [place] T3) TELE CONSULT [id number] Notes Entered by: RAISA STODDARD 27 May 2015 1117 ------- ------- ------- ------- -- [facility] FABIOLA ROBERTSON 05/27 [facility] [place] T3) [facility](Gastro [facility]) OUTPATIENT [id number] screeni fidelia for colorec rodger cancer FRANKY LAMAS 09/08 Released w/o Limitations [facility](Gas tro [facility]) [facility](Gastro [facility]) OUTPATIENT [id number] LUCIA Regalado 10/20 Released with Work/Duty Limitations [facility](Gas tro [facility]) [facility](Ophthal mology [facility]) OUTPATIENT [id number] POAG(S) /PVD OS/PC IOL'S OU GAL BAL 10/28 Released w/o Limitations [facility](Oph thalmol ogy [facility]) [facility](Emergen cy Medicine [facility]) OUTPATIENT [id number] EMILY GARCIA 03/20 Released w/o Limitations [facility](Kirsten rgency Medicin e [facility]) Procedures Combined list of: 1) Procedures from Department of Veterans Affairs facilities going back up to thelast 18 months, not all VA non-surgical procedures are included; 2) All procedures from the Department of Defense facilities. Procedure Procedure Type Code Date Perfomer Comments Sourc e No data available for this section [facility] INFUSION, NORMAL SALINE SOLUTION , 1000 CC 03/20 [facility] OPHTHALMOLOGICAL SERVICES: MEDICAL EXAMINATION AND EVALUATION, WITH INITIATION OR CONTINUATION OF DIAGNOSTIC AND TREATMENT PROGRAM; COMPREHENSIVE, ESTABLISHED PATIENT, 1 OR MORE VISITS 10/28 [facility] COLONOSCOPY, FLEXIBLE; DIAGNOSTIC, INCLUDING COLLECTION OF SPECIMEN(S) BY BRUSHING OR WASHING, WHEN PERFORMED (SEPARATE PROCEDURE) 10/20 [facility] DUAL-ENERGY X-RAY ABSORPTIOMETRY (DXA), BONE DENSITY STUDY, 1 OR MORE SITES; AXIAL SKELETON (EG, HIPS, PELVIS, SPINE) 05/16 DoD PSYCHOTHERAPY, 60 MINUTES WITH PATIENT 04/23 DoD PSYCHOTHERAPY, 60 MINUTES WITH PATIENT 04/11 DoD ARTHROCENTESIS, ASPIRATION AND/OR INJECTION, SMALL JOINT OR BURSA (EG, FINGERS, TOES); WITHOUT ULTRASOUND GUIDANCE 03/03 DoD PSYCHOTHERAPY, 60 MINUTES WITH PATIENT 02/28 DoD ARTHROCENTESIS, ASPIRATION AND/OR INJECTION, SMALL JOINT OR BURSA (EG, FINGERS, TOES); WITHOUT ULTRASOUND GUIDANCE 02/24 DoD PSYCHOTHERAPY, 60 MINUTES WITH PATIENT 02/14 DoD PSYCHOTHERAPY, 60 MINUTES WITH PATIENT 01/31 DoD PSYCHOTHERAPY, 60 MINUTES WITH PATIENT 01/17 DoD PSYCHOTHERAPY, 60 MINUTES WITH PATIENT 01/03 DoD PSYCHIATRIC DIAGNOSTIC EVALUATION 12/04 [facility] SCANNING COMPUTERIZED OPHTHALMIC DIAGNOSTIC IMAGING, POSTERIOR SEGMENT, WITH INTERPRETATION AND REPORT, UNILATERAL OR BILATERAL; OPTIC NERVE 10/31 DoD DESTRUCTION (EG, LASER SURGERY, ELECTROSURGERY, CRYOSURGERY, CHEMOSURGERY, SURGICAL CURETTEMENT), OF BENIGN LESIONS OTHER THAN SKIN TAGS OR CUTANEOUS VASCULAR PROLIFERATIVE LESIONS; UP TO 14 LESIONS 10/21 DoD EDUCATIONAL SUPPLIES, SUCH BOOKS, TAPES, AND PAMPHLETS, FOR THE PATIENT'S EDUCATION AT COST TO PHYSICIAN OR OTHER QUALIFIED HEALTH MANAGER SHIFT 10/04 [facility] ONLINE ASSESS &MANAG SERV PROVIDE,A QUAL NONPHYS HCP TO AN ESTABLISHED PAT/GUARDIAN,NOT ORIGINAT FRM RELAT ASSESS &MANAG SERV PROVIDE W/IN THE PREV 7 DAYS,USE THE INTERNET/[employer] NETWORK 09/17 [facility] ARTHROCENTESIS, ASPIRATION AND/OR INJECTION, SMALL JOINT OR BURSA (EG, FINGERS, TOES); WITHOUT ULTRASOUND GUIDANCE 03/01 [facility] PRESCRIPTION DRUG, BRAND NAME 11/17 [facility] THERAPEUTIC PROCEDURE, 1 OR MORE AREAS, EACH 15 MINUTES; THERAPEUTIC EXERCISES TO DEVELOP STRENGTH AND ENDURANCE, RANGE OF MOTION AND FLEXIBILITY 10/01 [facility] EDUCATIONAL SUPPLIES, SUCH BOOKS, TAPES, AND PAMPHLETS, FOR THE PATIENT'S EDUCATION AT COST TO PHYSICIAN OR OTHER QUALIFIED HEALTH MANAGER SHIFT 09/27 [facility] MANUAL THERAPY TECHNIQUES (EG, MOBILIZATION/ MANIPULATION, MANUAL LYMPHATIC DRAINAGE, MANUAL TRACTION), 1 OR MORE REGIONS, EACH 15 MINUTES 09/27 [facility] BIOPSY OF LIP 06/26 [facility] POSTOPERATIVE FOLLOW-UP VISIT, NORMALLY INCLUDED IN THE SURGICAL PACKAGE, INDICATE THAT EVALUATION & MANAGEMENT SERVICE WAS PERFORMED DURING A POSTOPERATIVE PERIOD REASON RELATED ORIGINAL PROCEDURE 04/25 [facility] CLOSED TREATMENT OF METATARSAL FRACTURE; WITHOUT MANIPULATION, EACH 03/21 [facility] TETANUS, DIPHTHERIA TOXOIDS AND ACELLULAR PERTUSSIS VACCINE (TDAP), WHEN ADMINISTERED TO INDIVIDUALS 7 YEARS OR OLDER, FOR INTRAMUSCULAR USE 01/09 [facility] DUAL-ENERGY X-RAY ABSORPTIOMETRY (DXA), BONE DENSITY STUDY, 1 OR MORE SITES; AXIAL SKELETON (EG, HIPS, PELVIS, SPINE) 12/07 [facility] WET PRINCESS, INCLUDING PREPARATIONS OF VAGINAL, CERVICAL OR SKIN SPECIMENS 11/29 [facility] IMMUNIZATION ADMINISTRATION (INCLUDES PERCUTANEOUS, INTRADERMAL, SUBCUTANEOUS, OR INTRAMUSCULAR INJECTIONS); EACH ADDITIONAL VACCINE (SINGLE OR COMBINATION VACCINE/TOXOID) 11/01 [facility] OPHTHALMOLOGICAL SERVICES: MEDICAL EXAMINATION AND EVALUATION, WITH INITIATION OR CONTINUATION OF DIAGNOSTIC AND TREATMENT PROGRAM; COMPREHENSIVE, ESTABLISHED PATIENT, 1 OR MORE VISITS 06/13 [facility] OPHTHALMOLOGICAL SERVICES: MEDICAL EXAMINATION AND EVALUATION, WITH INITIATION OR CONTINUATION OF DIAGNOSTIC AND TREATMENT PROGRAM; COMPREHENSIVE, ESTABLISHED PATIENT, 1 OR MORE VISITS 03/08 [facility] SCANNING COMPUTERIZED OPHTHALMIC DIAGNOSTIC IMAGING, POSTERIOR SEGMENT, WITH INTERPRETATION AND REPORT, UNILATERAL OR BILATERAL; OPTIC NERVE 02/08 DoD INJECTION(S); SINGLE TENDON SHEATH, OR LIGAMENT, APONEUROSIS (EG, PLANTAR FASCIA ) 06/15 DoD INJECTION(S); SINGLE TENDON SHEATH, OR LIGAMENT, APONEUROSIS (EG, PLANTAR FASCIA ) 05/04 DoD STAT/DYN ANK FT ORTHO,SOFT INT MAT,ADJUST FOR FIT,FOR POS,MAY BE USED FOR MINIMAL AMB,PREFAB ITEM THAT HAS BEEN TRIMMED,BENT,MOLDED ,ASSEMBLED,OR CUSTOMIZED TO FIT A SPEC PAT BY AN INDIV W EXPERTISE 03/18 [facility] SCREENING PAPANICOLAOU SMEAR; OBTAINING, PREPARING AND CONVEYANCE OF CERVICAL OR VAGINAL SMEAR TO LABORATORY 02/09 [facility] SCANNING COMPUTERIZED OPHTHALMIC DIAGNOSTIC IMAGING, POSTERIOR SEGMENT, WITH INTERPRETATION AND REPORT, UNILATERAL OR BILATERAL; OPTIC NERVE 12/23 [facility] HANDLING AND/OR CONVEYANCE OF SPECIMEN FOR TRANSFER FROM THE OFFICE TO A LABORATORY 03/04 [facility] OPHTHALMOLOGICAL SERVICES: MEDICAL EXAMINATION AND EVALUATION, WITH INITIATION OR CONTINUATION OF DIAGNOSTIC AND TREATMENT PROGRAM; COMPREHENSIVE, ESTABLISHED PATIENT, 1 OR MORE VISITS 12/23 DoD HANDLING AND/OR CONVEYANCE OF SPECIMEN FOR TRANSFER FROM THE OFFICE TO A LABORATORY 11/04 [facility] DETERMINATION OF REFRACTIVE STATE 05/27 DoD POSTOPERATIVE FOLLOW-UP VISIT, NORMALLY INCLUDED IN THE SURGICAL PACKAGE, INDICATE THAT EVALUATION & MANAGEMENT SERVICE WAS PERFORMED DURING A POSTOPERATIVE PERIOD REASON RELATED ORIGINAL PROCEDURE 04/29 [facility] POSTOPERATIVE FOLLOW-UP VISIT, NORMALLY INCLUDED IN THE SURGICAL PACKAGE, INDICATE THAT EVALUATION & MANAGEMENT SERVICE WAS PERFORMED DURING A POSTOPERATIVE PERIOD REASON RELATED ORIGINAL PROCEDURE 04/22 [facility] UNLISTED SPECIAL SERVICE, PROCEDURE OR REPORT 04/21 [facility] OPHTHALMIC BIOMETRY BY PARTIAL COHERENCE INTERFEROMETRY WITH INTRAOCULAR LENS POWER CALCULATION 03/31 [facility] OPHTHALMOLOGICAL SERVICES: MEDICAL EXAMINATION AND EVALUATION, WITH INITIATION OR CONTINUATION OF DIAGNOSTIC AND TREATMENT PROGRAM; COMPREHENSIVE, ESTABLISHED PATIENT, 1 OR MORE VISITS 03/03 DoD HANDLING AND/OR CONVEYANCE OF SPECIMEN FOR TRANSFER FROM THE OFFICE TO A LABORATORY 01/27 [facility] SCANNING COMPUTERIZED OPHTHALMIC DIAGNOSTIC IMAGING, POSTERIOR SEGMENT, (EG, SCANNING LASER) WITH INTERPRETATION AND REPORT, UNILATERAL 01/13 [facility] VISUAL FIELD EXAM,UNILAT/BI,INTE RP&REP;EXT EXM(EG,GOLDMANN VIS FLD,AT LEAST 3 ISOP PLOT&STAT DET W/IN MELISSA 30DEG/QUANT,AUTO THRSH ABDOUL,OCT G-1,32/42,HUMP VIS FLD ANAL FULL THRSH 30-2,24-2, OR 3060-2) 01/07 [facility] LAPAROSCOPIC CHOLECYSTECTOMY 08/22 [facility] COMMON DUCT EXPLORATION FOR REMOVAL OF CALCULUS 08/22 [facility] ENDOSCOPIC SPHINCTEROTOMY AND PAPILLOTOMY 08/22 [facility] ENDOSCOPIC REMOVAL OF STONE(S) FROM BILIARY TRACT 08/22 [facility] INTRAOPERATIVE CHOLANGIOGRAM 08/22 DoD POSTOPERATIVE FOLLOW-UP VISIT, NORMALLY INCLUDED IN THE SURGICAL PACKAGE, INDICATE THAT EVALUATION & MANAGEMENT SERVICE WAS PERFORMED DURING A POSTOPERATIVE PERIOD REASON RELATED ORIGINAL PROCEDURE 08/22 DoD POSTOPERATIVE FOLLOW-UP VISIT, NORMALLY INCLUDED IN THE SURGICAL PACKAGE, INDICATE THAT EVALUATION & MANAGEMENT SERVICE WAS PERFORMED DURING A POSTOPERATIVE PERIOD REASON RELATED ORIGINAL PROCEDURE 08/21 [facility] LAPAROSCOPY, SURGICAL; CHOLECYSTECTOMY WITH EXPLORATION OF COMMON DUCT 08/20 [facility] UNLISTED SPECIAL SERVICE, PROCEDURE OR REPORT 08/20 [facility] ESOPHAGOGASTRODUODE NOSCOPY, FLEXIBLE, TRANSORAL; WITH BIOPSY, SINGLE OR MULTIPLE 08/01 [facility] ELECTROCARDIOGRAM, ROUTINE ECG WITH AT LEAST 12 LEADS; WITH INTERPRETATION AND REPORT 05/27 DoD OPHTHALMOLOGICAL SERVICES: MEDICAL EXAMINATION AND EVALUATION, WITH INITIATION OR CONTINUATION OF DIAGNOSTIC AND TREATMENT PROGRAM; COMPREHENSIVE, ESTABLISHED PATIENT, 1 OR MORE VISITS 12/26 [facility] ELECTROCARDIOGRAM, ROUTINE ECG WITH AT LEAST 12 LEADS; WITH INTERPRETATION AND REPORT 11/24 [facility] HANDLING AND/OR CONVEYANCE OF SPECIMEN FOR TRANSFER FROM THE OFFICE TO A LABORATORY 10/05 [facility] DETERMINATION OF REFRACTIVE STATE 07/03 DoD POSTOPERATIVE FOLLOW-UP VISIT, NORMALLY INCLUDED IN THE SURGICAL PACKAGE, INDICATE THAT EVALUATION & MANAGEMENT SERVICE WAS PERFORMED DURING A POSTOPERATIVE PERIOD REASON RELATED ORIGINAL PROCEDURE 05/30 DoD POSTOPERATIVE FOLLOW-UP VISIT, NORMALLY INCLUDED IN THE SURGICAL PACKAGE, INDICATE THAT EVALUATION & MANAGEMENT SERVICE WAS PERFORMED DURING A POSTOPERATIVE PERIOD REASON RELATED ORIGINAL PROCEDURE 05/05 DoD POSTOPERATIVE FOLLOW-UP VISIT, NORMALLY INCLUDED IN THE SURGICAL PACKAGE, INDICATE THAT EVALUATION & MANAGEMENT SERVICE WAS PERFORMED DURING A POSTOPERATIVE PERIOD REASON RELATED ORIGINAL PROCEDURE 04/21 DoD UNLISTED SPECIAL SERVICE, PROCEDURE OR REPORT 04/20 [facility] OPHTHALMOLOGICAL SERVICES: MEDICAL EXAMINATION AND EVALUATION, WITH INITIATION OR CONTINUATION OF DIAGNOSTIC AND TREATMENT PROGRAM; COMPREHENSIVE, ESTABLISHED PATIENT, 1 OR MORE VISITS 04/14 [facility] OPHTHALMOLOGICAL SERVICES: MEDICAL EXAMINATION AND EVALUATION, WITH INITIATION OR CONTINUATION OF DIAGNOSTIC AND TREATMENT PROGRAM; COMPREHENSIVE, ESTABLISHED PATIENT, 1 OR MORE VISITS 03/21 [facility] DETERMINATION OF REFRACTIVE STATE 02/22 [facility] THERAPEUTIC, PROPHYLACTIC OR DIAGNOSTIC INJECTION (SPECIFY SUBSTANCE OR DRUG); SUBCUTANEOUS OR INTRAMUSCULAR 12/06 [facility] PRESCRIPTION DRUG, ORAL, NONCHEMOTHERAPEUTIC , NOT OTHERWISE SPECIFIED 12/04 [facility] IMMUNIZATION ADMINISTRATION (INCLUDES PERCUTANEOUS, INTRADERMAL, SUBCUTANEOUS, OR INTRAMUSCULAR INJECTIONS); 1 VACCINE (SINGLE OR COMBINATION VACCINE/TOXOID) 10/03 [facility] OPHTHALMIC BIOMETRY BY PARTIAL COHERENCE INTERFEROMETRY WITH INTRAOCULAR LENS POWER CALCULATION 06/02 [facility] UNLISTED SPECIAL SERVICE, PROCEDURE OR REPORT 11/15 [facility] OPHTHALMOLOGICAL SERVICES: MEDICAL EXAMINATION AND EVALUATION, WITH INITIATION OR CONTINUATION OF DIAGNOSTIC AND TREATMENT PROGRAM; COMPREHENSIVE, ESTABLISHED PATIENT, 1 OR MORE VISITS 11/09 [facility] VISUAL FIELD EXAM,UNILAT/BI,INTE RP&REP;EXT EXM(EG,GOLDMANN VIS FLD,AT LEAST 3 ISOP PLOT&STAT DET W/IN MELISSA 30DEG/QUANT,AUTO THRSH ABDOUL,OCT G-1,32/42,HUMP VIS FLD ANAL FULL THRSH 30-2,24-2, OR 30/60-2) 11/09 [facility] DETERMINATION OF REFRACTIVE STATE 10/28 [facility] SUPP &MATERIAL (EXCEPT SPECTACLE),PROVID,T HE PHYS/OTH QUALIFIED HEALTH MANAGER SHIFT OVER &ABOVE THOSE USUALLY INCLD W THE OFFICE VISIT/OTH SER RENDERED (LIST DRUG,TRAYS,SUPP,OR MATERIAL PROVID) 10/26 [facility] IMMUNIZATION ADMINISTRATION (INCLUDES PERCUTANEOUS, INTRADERMAL, SUBCUTANEOUS, OR INTRAMUSCULAR INJECTIONS); 1 VACCINE (SINGLE OR COMBINATION VACCINE/TOXOID) 10/04 [facility] COLONOSCOPY, FLEXIBLE; DIAGNOSTIC, INCLUDING COLLECTION OF SPECIMEN(S) BY BRUSHING OR WASHING, WHEN PERFORMED (SEPARATE PROCEDURE) 03/16 [facility] THERAPEUTIC PROCEDURE, 1 OR MORE AREAS, EACH 15 MINUTES; THERAPEUTIC EXERCISES TO DEVELOP STRENGTH AND ENDURANCE, RANGE OF MOTION AND FLEXIBILITY 10/07 [facility] THERAPEUTIC PROCEDURE, 1 OR MORE AREAS, EACH 15 MINUTES; THERAPEUTIC EXERCISES TO DEVELOP STRENGTH AND ENDURANCE, RANGE OF MOTION AND FLEXIBILITY 10/05 [facility] THERAPEUTIC PROCEDURE, 1 OR MORE AREAS, EACH 15 MINUTES; THERAPEUTIC EXERCISES TO DEVELOP STRENGTH AND ENDURANCE, RANGE OF MOTION AND FLEXIBILITY 10/02 [facility] THERAPEUTIC PROCEDURE, 1 OR MORE AREAS, EACH 15 MINUTES; THERAPEUTIC EXERCISES TO DEVELOP STRENGTH AND ENDURANCE, RANGE OF MOTION AND FLEXIBILITY 09/30 [facility] SELF-CARE/HOME MANAGMENT TRAIN (EG,ACT OF DAILY LIVING (ADL) &COMPENSAT TRAIN,MEAL PREPARATION,SAFETY PROCS,AND INSTRUCT IN USE OF ASST TECHNOLOGY DEV/ADPT EQUIP) DIR ONE-ON-ONE CONT,EA 15 MINUTES 09/23 [facility] PHARMACOLOGIC MANAGEMENT, INCLUDING PRESCRIPTION, USE, AND REVIEW OF MEDICATION WITH NO MORE THAN MINIMAL MEDICAL PSYCHOTHERAPY 05/21 [facility] ENDOMETRIAL SAMPLING (BIOPSY) WITH OR WITHOUT ENDOCERVICAL SAMPLING (BIOPSY), WITHOUT CERVICAL DILATION, ANY METHOD (SEPARATE PROCEDURE) 03/27 [facility] DETERMINATION OF REFRACTIVE STATE 11/25 [facility] UNLISTED OPHTHALMOLOGICAL SERVICE OR PROCEDURE 07/01 [facility] VISUAL FIELD EXAM,UNILAT/BI,INTE RP&REP;EXT EXM(EG,GOLDMANN VIS FLD,AT LEAST 3 ISOP PLOT&STAT DET W/IN MELISSA 30DEG/QUANT,AUTO THRSH ABDOUL,OCT G-1,32/42,HUMP VIS FLD ANAL FULL THRSH 30-2,24-2, OR 30/60-2) 06/13 [facility] ALBUTEROL,ALL FORMULATIONS ISOMERS,INHALATION SOLUTION ADMINISTERED THRU DME,CONCENTRATED FORM, PER 1 MG (ALBUTEROL)/PER 0.5 MG(LEVALBUTEROL) 02/15 [facility] SCREENING MAMMOGRAPHY, BILATERAL (TWO VIEW FILM STUDY OF EACH BREAST) 10/04 [facility] IMMUNIZATION ADMINISTRATION (INCLUDES PERCUTANEOUS, INTRADERMAL, SUBCUTANEOUS, OR INTRAMUSCULAR INJECTIONS); EACH ADDITIONAL VACCINE (SINGLE OR COMBINATION VACCINE/TOXOID) 09/18 [facility] FITTING OF SPECTACLES, EXCEPT FOR APHAKIA; MONOFOCAL 08/14 [facility] VISUAL FIELD EXAM,UNILAT/BI,INTE RP&REP;EXT EXM(EG,GOLDMANN VIS FLD,AT LEAST 3 ISOP PLOT&STAT DET W/IN MELISSA 30DEG/QUANT,AUTO THRSH ABDOUL,OCT G-1,32/42,HUMP VIS FLD ANAL FULL THRSH 30-2,24-2, OR 30/60-2) 06/29 [facility] PHARMACOLOGIC MANAGEMENT, INCLUDING PRESCRIPTION, USE, AND REVIEW OF MEDICATION WITH NO MORE THAN MINIMAL MEDICAL PSYCHOTHERAPY 04/15 DoD SCREENING MAMMOGRAPHY, BILATERAL (TWO VIEW FILM STUDY OF EACH BREAST) 04/07 [facility] URINALYSIS, BY DIP STICK/TABLET REAGENT FOR BILIRUBIN, GLUCOSE, HEMOGLOBIN, KETONES, LEUKOCYTES, NITRITE, PH, PROTEIN, SPEC GRAV, UROBILINOGEN, ANYNUMBER OF CONSTITUENTS; AUTOMATED, W/ MICROSCOPY 03/15 [facility] BLOOD COUNT; COMPLETE (CBC), AUTOMATED (HGB, HCT, RBC, WBC AND PLATELET COUNT) AND AUTOMATED DIFFERENTIAL WBC COUNT 01/26 [facility] URINALYSIS, BY DIP STICK/TABLET REAGENT FOR BILIRUBIN, GLUCOSE, HEMOGLOBIN, KETONES, LEUKOCYTES, NITRITE, PH, PROTEIN, SPEC GRAV, UROBILINOGEN, ANYNUMBER OF CONSTITUENTS; AUTOMATED, W/ MICROSCOPY 01/07 [facility] CYTOPATHOLOGY, SMEARS, CERVICAL OR VAGINAL, UP TO THREE SMEARS; SCREENING BY INFANTRY UNIT LEADER UNDER PHYSICIAN SUPERVISION 12/13 [facility] DESTRUCTION (EG, LASER SURGERY, ELECTROSURGERY, CRYOSURGERY, CHEMOSURGERY, SURGICAL CURETTEMENT), PREMALIGNANT LESIONS (EG, ACTINIC KERATOSES); FIRST LESION 12/08 [facility] DETERMINATION OF REFRACTIVE STATE 11/23 [facility] Visual Pollard Test Extended Examination Visual Pollard Test Extended Examination 18090 11/09 YOANDY SORENSEN [facility] Ophthalmological Prior Patient Start Comprehensive Care Ophthalmological Prior Patient Start Comprehensive Care 65328 10/28 YOANDY SORENSEN [facility] Determination Of Refractive State Determination Of Refractive State 96166 10/28 YOANDY SORENSEN [facility] Influenza Split Virus Vaccine Age 3+ Years Intramuscular 10/04 MAURIZIO WHATLEY [facility] Immunization Administration One Vaccine Immunization Administration One Vaccine 14076 10/04 MAURIZIO WHATLEY [facility] Ophthalmological Prior Patient Start Comprehensive Care Ophthalmological Prior Patient Start Comprehensive Care 70200 10/28 GAL BAL [facility] Visual Pollard Test Extended Examination Visual Pollard Test Extended Examination 27212 10/28 GAL BAL [facility] Scanning Computerized Ophthalmic Diagnostic Imaging Optic Nerve Scanning Computerized Ophthalmic Diagnostic Imaging Optic Nerve 02535 10/28 GAL BAL [facility] Complete Colonoscopy Complete Colonoscopy 56156 10/23 AVRIL PEÑA [facility] Bone Density Studies DEXA Axial Skeleton Bone Density Studies DEXA Axial Skeleton 84477 05/16 GIUSEPPE AVELAR [facility] Corticosteroids Injection Intrabursal Corticosteroids Injection Intrabursal 98920 03/03 CINDI BOOKER ITB Bursa, bilaterally. [facility] Corticosteroids Injection Intrabursal Corticosteroids Injection Intrabursal 02/25 CINDI BOOKER [facility] Psychiatric Evaluation Comprehensive Examination Psychiatric Evaluation Comprehensive Examination 43579 12/04 PERICO TATE [facility] Scanning Computerized Ophthalmic Diagnostic Imaging Optic Nerve Scanning Computerized Ophthalmic Diagnostic Imaging Optic Nerve 96874 10/31 GAL BAL [facility] Ophthalmological Prior Patient Start Comprehensive Care Ophthalmological Prior Patient Start Comprehensive Care 19162 10/31 GAL BAL [facility] Destruction Of Benign Lesion By Cryosurgery Destruction Of Benign Lesion By Cryosurgery 95040 10/21 ROSE MARIE GOYAL [facility] [facility] Biopsy Skin Biopsy Skin 40521 10/21 ROSE MARIE GOYAL [facility] -Supervised Services Provision Of Educational Supplies -Supervised Services Provision Of Educational Supplies 73674 10/04 ANTONIA RUBALCAVA [facility] Physical Therapy: ___ Se ion Segments, 15 Minutes Each Physical Therapy: ___ Session Segments, 15 Minutes Each 54408 10/04 ANTONIA RUBALCAVA 15 min [facility] Physical Medicine Physical Therapy Evaluation Physical Medicine Physical Therapy Evaluation 27094 10/04 ANTONIA RUBALCAVA [facility] Internet Med Svc Qual Nonphys Healthcare Prof Estab Patient Internet Med Sv Qual Nonphys Healthcare Prof Estab Patient 87885 09/17 HERIBERTO HICKS [facility] Corticosteroids Injection Intrabursal Corticosteroids Injection Intrabursal 03/01 ONEYDA FORRESTER Corticosteroid injections of the bursa bilateral of the pes anserine bursa and the trochanteric bursa. [facility] Physical Therapy: ___ Se ion Segments, 15 Minutes Each Physical Therapy: ___ Session Segments, 15 Minutes Each 35054 10/01 ORALIA HUBER X 30 mins [facility] -Supervised Services Provision Of Educational Supplies -Supervised Services Provision Of Educational Supplies 56463 09/27 ANTONIA RUBALCAVA [facility] Physical Therapy: ___ Se ion Segments, 15 Minutes Each Physical Therapy: ___ Session Segments, 15 Minutes Each 68074 09/27 ANTONIA RUBALCAVA 15 min [facility] Physical Medicine Physical Therapy Evaluation Physical Medicine Physical Therapy Evaluation 01389 09/27 ANTONIA RUBALCAVA [facility] Physical Therapy Mobilization Joint Physical Therapy Mobilization Joint 58792 09/27 ANTONIA RUBALCAVA 10 min [facility] Biopsy Lip Inner Aspect Lower Lip Biopsy Lip Inner Aspect Lower Lip 95079 06/26 MADISON TRAN [facility] Postoperative Visit, Without Charge Postoperative Visit, Without Charge 34343 04/25 SANAM MEEKS [facility] Closed Treatment Of Fracture Of Metatarsal Bone(s) (Each) Closed Treatment Of Fracture Of Metatarsal Bone(s) (Each) 41439 03/21 SANAM MEEKS A Cam Boot/Surgical Shoe was applied in the Cast Room. Neurovascular status was assessed pre and post intervention. Proper size attained. Patient was instructed in care and precautions, and instructed to return for concerns/sympto ms. Inflation/defla tion instructions. NSAID's or Tylenol PRN as needed/indicate d. Patient/parent voiced understanding, and left the cast room to make follow on visit in good condition, or RTC PRN as directed Wear Boot 16/05 except for showers, unless directed otherwise [facility] Tdap Vaccine Tdap Vaccine 81709 01/09 TASHA CARRERA Tdap; Series #: 1; .5 mL; IM; Left Arm; Mfg: [employer]; Lot: [id number]; VIS given (Aliza: 11/16/11). [facility] Immunization Administration One Vaccine Immunization Administration One Vaccine 08898 01/09 TASHA CARRERA [facility] Bone Density Studies DEXA Axial Skeleton Bone Density Studies DEXA Axial Skeleton 02849 12/07 GIUSEPPE AVELAR [facility] Wet princess, including preparations of vaginal, cervical or skin specimens 11/28 FABIOLA ROBERTSON [facility] Screening papanicolaou smear; obtaining, preparing and conveyance of cervical or vaginal smear to laboratory 11/28 FABIOLA ROBERTSON [facility] -Supervised Specimen Handling / Transfer: Office To Lab -Supervised Specimen Handling / Transfer: Office To Lab 08339 11/28 FABIOLA ROBERTSON Immunization Administration Each Additional Vaccine 11/01 MANPREET JARRETT [facility] Influenza Split Virus Vaccine Age 3+ Years Intramuscular 11/01 MANPREET JARRETT [facility] Immunization Administration One Vaccine Immunization Administration One Vaccine 35708 11/01 MANPREET JARRETT [facility] Zoster Vaccine, Live Zoster Vaccine, Live 83754 11/01 KOLBYMANPREETLEY [facility] Ophthalmological Prior Patient Start Comprehensive Care Ophthalmological Prior Patient Start Comprehensive Care 64192 06/13 FRANKIE POSADA [facility] Ophthalmological Prior Patient Start Comprehensive Care Ophthalmological Prior Patient Start Comprehensive Care 16520 03/08 GAL BAL [facility] Scanning Computerized Ophthalmic Diagnostic Imaging Optic Nerve Scanning Computerized Ophthalmic Diagnostic Imaging Optic Nerve 39908 02/08 GAL BAL [facility] Ophthalmological Prior Patient Start Comprehensive Care Ophthalmological Prior Patient Start Comprehensive Care 34012 02/08 GAL BAL [facility] Injection Of Ligament Plantar Fascia Right Foot Injection Of Ligament Plantar Fascia Right Foot 06/15 OBEY REYNOSO DoD Injection Of Ligament Plantar Fascia Right Foot Injection Of Ligament Plantar Fascia Right Foot 05/06 OBEY REYNOSO 2nd cortisone injection: 1ml lidocaine + 1ml marcaine + 1ml kenalog-40 into plantar medial heel right foot DoD Static or dynamic ankle foot orthosis, including soft interface material, adjustable for fit, for positioning, may be used for minimal ambulation, prefabricated, includes fitting and adjustment 03/18 OBEY REYNOSO dispensed nite splint [facility] Foot, arch support, removable, premolded, longitudinal, each 03/18 OBEY REYNOSO dispensed prefabricate arch supports DoD Injection Of Ligament Plantar Fascia Right Foot Injection Of Ligament Plantar Fascia Right Foot 03/18 OBEY REYNOSO 1st cortisone injx: 1ml 1% lidocaine plain + 1ml 0.5%Marcaine Plain + 1ml Kenalog - 40 into plantar medial heel of the right foot. explained to patient that they may have pain for 3-4 days following cortisone injx [facility] Scanning Computerized Ophthalmic Diagnostic Imaging Optic Nerve Scanning Computerized Ophthalmic Diagnostic Imaging Optic Nerve 12859 03/04 GAL BAL [facility] Fecal Analysis - Occult Blood 02/09 FABIOLA ROBERTSON Screening papanicolaou smear; obtaining, preparing and conveyance of cervical or vaginal smear to laboratory 02/[address]Supervised Specimen Handling / Transfer: Office To Lab -Supervised Specimen Handling / Transfer: Office To Lab 45126 02/09 FABIOLA ROBERTSON Scanning Computerized Ophthalmic Diagnostic Imaging 12/23 GAL BAL Ophthalmological Prior Patient Start Comprehensive Care Ophthalmological Prior Patient Start Comprehensive Care 62159 12/[address]Supervised Specimen Handling / Transfer: Office To Lab -Supervised Specimen Handling / Transfer: Office To Lab 57841 03/04 BRANDI MATTSON Ophthalmological Prior Patient Start Comprehensive Care Ophthalmological Prior Patient Start Comprehensive Care 30714 12/[address]Supervised Specimen Handling / Transfer: Office To Lab -Supervised Specimen Handling / Transfer: Office To Lab 45282 11/04 DOYNA LEIGH Screening papanicolaou smear; obtaining, preparing and conveyance of cervical or vaginal smear to laboratory 11/04 DONYA LEIGH Postoperative Visit, Without Charge Postoperative Visit, Without Charge 29486 05/27 GAL BAL Determination Of Refractive State Determination Of Refractive State 28502 05/27 GAL BAL Postoperative Visit, Without Charge Postoperative Visit, Without Charge 28077 04/29 GAL BAL Postoperative Visit, Without Charge Postoperative Visit, Without Charge 80141 04/22 GAL BAL Ophthalmic Biometry By Partial Coherence Interferometry Ophthalmic Biometry By Partial Coherence Interferometry 00852 03/31 GAL BAL Ophthalmological Prior Patient Start Intermediate Level Care Ophthalmological Prior Patient Start Intermediate Level Care 42866 03/31 GAL BAL Ophthalmological Prior Patient Start Comprehensive Care Ophthalmological Prior Patient Start Comprehensive Care 04015 03/[address]Supervised Specimen Handling / Transfer: Office To Lab -Supervised Specimen Handling / Transfer: Office To Lab 41332 01/27 LISBETH FERMIN Optical Coherence Tomography 01/13 FRANKIE POSADA Ophthalmological Prior Patient Start Comprehensive Care Ophthalmological Prior Patient Start Comprehensive Care 20484 01/13 FRANKIE POSADA Visual Pollard Test Extended Examination Visual Pollard Test Extended Examination 85589 01/07 OUSMANE GREENBERG ERCP With Biliary Catheterization ERCP With Biliary Catheterization 70979 08/21 AVRIL PEÑA ERCP With Endoscopic Sphincterotomy ERCP With Endoscopic Sphincterotomy 68111 08/21 AVRIL PEÑA [facility] ERCP With Removal Of Stones From Biliary/Pancreatic Ducts ERCP With Removal Of Stones From Biliary/Pancreatic Ducts 03556 08/21 AVRIL PEÑA [facility] Duodenoscopy With Biopsy 08/02 MAJOR CADET [facility] Electrocardiogram Electrocardiogram 85060 05/27 OUSMANE NAVARRO [facility] Ophthalmological Prior Patient Start Comprehensive Care Ophthalmological Prior Patient Start Comprehensive Care 09492 12/[address]Supervised Specimen Handling / Transfer: Office To Lab -Supervised Specimen Handling / Transfer: Office To Lab 88828 10/05 XANDER MONGE [facility] Determination Of Refractive State Determination Of Refractive State 53499 07/03 GAL BAL [facility] Postoperative Visit, Without Charge Postoperative Visit, Without Charge 02629 07/03 GAL BAL [facility] Determination Of Refractive State Determination Of Refractive State 82120 05/30 GAL BAL [facility] Postoperative Visit, Without Charge Postoperative Visit, Without Charge 71303 05/30 GAL BAL [facility] Postoperative Visit, Without Charge Postoperative Visit, Without Charge 66022 05/05 GAL BAL [facility] Postoperative Visit, Without Charge Postoperative Visit, Without Charge 67496 04/21 PERCY FLYNN [facility] Ophthalmological Prior Patient Start Comprehensive Care Ophthalmological Prior Patient Start Comprehensive Care 31570 04/14 GAL BAL [facility] Ophthalmic Biometry By Partial Coherence Interferometry Ophthalmic Biometry By Partial Coherence Interferometry 99828 04/14 GAL BAL [facility] Ophthalmological Prior Patient Start Comprehensive Care Ophthalmological Prior Patient Start Comprehensive Care 84279 03/21 GAL BAL [facility] Supervised Injection Intramuscular Antibiotic Supervised Injection Intramuscular Antibiotic 04255 12/06 FABIOLA ROBERTSON [facility] Influenza Split Virus Vaccine Age 3+ Years Intramuscular 10/03 TASHA CARRERA [facility] Immunization Administration One Vaccine Immunization Administration One Vaccine 78508 10/03 TASHA CARRERA [facility] Ophthalmic Biometry By Partial Coherence Interferometry Ophthalmic Biometry By Partial Coherence Interferometry 97255 06/02 GAL BAL [facility] Ophthalmological Prior Patient Start Comprehensive Care Ophthalmological Prior Patient Start Comprehensive Care 72550 06/02 GAL BAL [facility] Ophthalmological Prior Patient Start Comprehensive Care Ophthalmological Prior Patient Start Comprehensive Care 81062 11/09 GAL BAL [facility] Cholecystotomy CARLOS CAM [facility] Dilation And Curettage CARLOS CAM [facility] Cataract Surgery CARLOS CAM [facility] Social History Combined list of available smoking, tobacco, and other social history from [facility] facilities. Social History Type Response Date Comment Sour e This section is an empty social history section. DoD Assessment and Plan Combined list of future care activities from [facility] Defense and Veterans Affairs facilities (e.g., assessment and plan notes, appointments, orders, and referrals). Additional future care activities may be listed in the Plan of Care section. Result Assessment and Plan Date Source Assessment and Plan No data available for this section 03/19/2025 Ambulatory Pharmacy Functional Status Combined list of recent functional and cognitive assessments recorded at [facility] Functional Dougherty Measurement (FIM) Scale: 1 = Total Assistance (Subject = 0% +), 2 = Maximal Assistance (Subject = 25% +), 3 = Moderate Assistance (Subject = 50% +), 4 = Minimal Assistance (Subject = 75% +), 5 = Supervision, 6 = Modified Dougherty (Device), 7 = Complete Dougherty (Timely, Safely). Assessment Date/Time Source Assessment Type Assessment Skill Assessment Score Assessment Details No data available for this section
--- OUTSIDE RECORDS SUMMARY | 2025-03-19 00:16 | XMS_ITS | Patient Health Record ---
Author Organization 1 OF [facility]du[facility] Address [address] [address] Care Team Providers Care Cake Press Operator Name Role Phone Kalia Samaniego MD Primary Care Provider Rupali muñiz Toni Hernandezie Unavailable [phone] Allergies Allergen (clinical drug ingredient) Drug/Non Drug Allergy documented on EMR Reaction Allergy Type Onset Date Status Substance with sulfonamide structure and antibacterial mechanism of action (substance) Sulfa Antibiotics Unknown Drug Allergy Active Reason For Referral No Information Medications Medication SIG (Take, Route, Frequency, Duration) Notes Start Date End Date Status Montelukast Sodium 10 MG Oral for 90 Active Ciclopirox 8 % 1 application to affected toenails daily. Every weekend, remove medicine with nail armenian remover. Topical Once a day for 120 days 02/23/2023 Not-Taking Pantoprazole Sodium 40 MG Oral for 90 Active Ketoconazole 2 % 1 application to exposed toenail bed Topical Once a day for 90 days 02/23/2023 Not-Taking DULoxetine HCl 60 MG Oral for 90 Active Plan Of Treatment No Information Insurance Providers Payer Name Payer Address Payer Phone Subscriber Number Group Number Insured Name Patient Relationship to Insured Coverage Start Date Coverage End Date Medicare [address] [facility] ESTELITA zhao [id number] Yasir Collinry Self - patient is the insured [facility] [employer] [address] [place] [address] [id number] ShwethaCollin felizry Self - patient is the insured Medical (General) History Medical History History ICD Code ARTHRITIS, GERD, OSTEOPOROSIS, ANKYLOSIN G SPONDYLITIS Surgical History Surgery Date(Month/Year)
--- OUTSIDE RECORDS SUMMARY | 2025-03-19 00:17 | XMS_ITS | Clinical Summary ---
Author Organization [facility] Address [address] [place] [address] Care Team Providers Care Traffic Signal Repairer Name Role Phone Kalia Samaniego MD Primary Care Provider [phone] Source Comments [facility],non-owned Affiliates and Associated Physician Practices is amultiple site organization consisting of ambulatory clinics and hospital sitesin [place], [place], [place] and [place]. This disclosure is being madepursuant to the Care Everywhere program and may not contain all information available regarding this patient. Last updated 18.[facility] Allergies Active Allergy Reactions Criticality Noted Date Comments Sulfa Drugs Urticaria,Itching High 11/21/2019 Medications * Be aware that medications may not be up to date on this document. Alwaysverify current medications with the patient. DULoxetine (Cymbalta) 30 MG capsuleIndicatio ns:Major Depressive Disorder Take 3 (three) capsules by mouth once daily - 60 mg tab and 30 mg tab for 90 mg daily Reasons: Major Depressive Disorder 1 Active montelukast (Singulair) 10 MG tabletIndication s:Seasonal Allergic Rhinitis Take 1 (one) tablet by mouth at bedtime Reasons: Hayfever Active PANTOPRAZOLE SODIUM POIndications:ge rd Take 40 mg by mouth once daily Reasons: gerd 2 Active lidocaine (Lidoderm) 5 % patch Apply 5 % to affected area once daily as needed 2 Active golimumab (Simponi Aria) 50 MG/4ML injectionIndicat ions:Ankylosing Spondylitis 4 mL Every 8 weeks Reasons: Rheumatic Disease causing Vertebrae Inflammation 2 Active senna-docusate (Senokot-S) 8.6-50 MG tabletIndication s:Constipation Take 1 (one) tablet by mouth 2 times daily as needed for Constipation 3 Active nystatin (Nystop) 278863 UNIT/GM powderIndication s:Cutaneous Candidiasis For external use. 3 Active desonide 0.05% cream - ketoconazole 2% cream 50:50 CREAIndications: toenail fungus APPLY TOPICALLY TO EXPOSED TOENAIL BED EVERY DAY DIRECTED, # 60 g, 1 total refill(s), Acute 3 Active lidocaine (Lidoderm) 5 % patch APPLY 1 PATCH TOPICALLY DAILY NEEDED FOR PAIN *LEAVE ON MOST PAINFUL AREA FOR UP TO 12 HOURS PER DAY*, # 30 EA, 4 total refill(s), Acute 2 Active hydrocortisone powd 1% - nystatin powd 33% - QSAD zinc oxide ointment to 120 g OINT See Instructions, # 60 g, 2 total refill(s), Hard Stop 3 Active Multiple Vitamins-Mineral s (PreserVision AREDS 2) capsuleIndicatio ns:supplement Take 2 (two) capsules by mouth 2 times daily Reasons: supplement Active diphenhydrAMINE- APAP, sleep, (Tylenol PM Es) 25-500 MG tabletIndication s:Mild Pain,sleep Take 2 (two) tablets by mouth nightly as needed for Insomnia Reasons: Mild Pain, sleep Active Multiple Vitamins-Mineral s (BARIATRIC MULTIVITAMINS/IR ON PO)Indications:s upplement Take 1 Each by mouth at bedtime Reasons: supplement Active OtherIndications :supplement 1 Each 3 times daily BARIATRIC CALCIUM CHEWS Reasons: supplement Active cyclobenzaprine (Flexeril) 10 MG tablet 5 Active predniSONE (Deltasone) 5 MG tablet 5 Active traMADol (Ultram) 50 MG tablet 5 Active Active Problems Problem Noted Date Diagnosed Date Hip arthritis 08/11/2023 Morbid obesity 01/10/2023 Encounters Date Type Department Care Team Description 01/10/2025 9:30 AM CDT Office Visit [facility] Management Services [address] [place] [address] Neli Pritchard APRN-FIDELINA Bariatric surgery status (Primary Dx); Morbid obesity from Last 3 Months Family History Medical History Relation Name Comments CAD (Coronary Artery Disease) Father CVA Father Hypertension Father Dementia Mother Hypertension Mother Relation Name Status Comments Father Mother Social History Tobacco Use Types Packs/Day Years Used Date Smoking Tobacco: Never Smokeless Tobacco: Never Tobacco Cessation:Counseling Given: Not Answered Alcohol Use Standard Drinks/Week Comments Not Currently 0 (1 standard drink = 0.6 oz pur e alcohol) occ OASIS D0700: Social Isolation Answer Da te Recorded Frequency of experiencing loneliness or isolatio n Never 09/01/2023 OASIS A1250: Transportation Answer Date Recorded Lack of Transportation (Medical) No 09/01/2023 Lack of Transportation (Non-Medical) No 09/01/2023 Patient Unable or Declines to Respond No 09/01/2023 OASIS B1300: Health Literacy Answer Marvin e Recorded Frequency of needing help to read materials from doctor or pharmacy Never 09/01/2023 AUDIT-C Answer Date Recorded Q1: How often do you have a drink containing alc ohol? Monthly or less 08/11/2023 Q2: How many drinks containi ng alcohol do you have on a typical day when you are drinking? 1 or 2 08/11/2023 Q3: How often do you have si x or more drinks on one occasion? Never 08/11/2023 Overall Financial Resource Strain (CARDIA) Answe r Date Recorded How hard is it for you to pa y for the very basics like food, housing, medical care, and heating? Not hard at all 08/11/2023 [facility] - Occupational Stress Questionnaire Answer Date Recorded Do you feel stress - tense, restless, nervous, or anxious, or unable to sleep at night because your mind is troubled all the time - these days? Not at all 08/11/2023 Hunger Vital Sign Answer Date Recorded Within the past 12 months, y ou worried that your food would run out before you got the money to buy more. Never true 08/11/20 23 Within the past 12 months, t he food you bought just didn't last and you didn't have money to get more. Never true 08/11/2023 PRAPARE - Transportation Answer Date Re corded In the past 12 months, has l ack of transportation kept you from medical appointments or from getting medications? No 08/11/2023 Lack of Transportation (Non-Medical) Not on file 08/11/2023 Housing Stability Vital Sign Answer Marvin e Recorded In the last 12 months, was t here a time when you were not able to pay the mortgage or rent on time? No 08/11/2023 In the last 12 months, how many places have you lived? 1 08/11/2023 In the last 12 months, was t here a time when you did not have a steady place to sleep or slept in a [place] [facility] [place] (including now)? No 08/11/2023 Comments Unknown Sex and Gender Information Value Date Recorded Sex Assigned at Female 02/18/2022 8:20 AM CDT Legal Sex Female 3:41 PM CDT Gender Identity Female 02/18/2022 8:20 AM CDT Sexual Orientation Straight 02/18/2022 8: 20 AM CDT Last Filed Vital Signs Vital Sign Reading Time Taken Comments Blood Pressure 102/60 01/10/2025 9:09 AM CDT Pulse 87 01/10/2025 9:09 AM CDT Temperature 36.4 C (97.6 F) 01/10/2025 9:09 AM CDT Respiratory Rate 17 09/01/2023 8:53 AM VP BIOLOGY Oxygen Saturation 97% 01/10/2025 9:09 AM CDT Inhaled Oxygen Concentration - - Weight 58.8 kg (129 lb 9.6 oz) 01/10/2025 9:09 A M CDT Height 157.5 cm (5' 2 ) 01/10/2025 9:09 AM CDT Body Mass Index 23.7 01/10/2025 9:09 AM CDT Plan of Treatment Upcoming Encounters Date Type Department Care Team (Late st Contact Info) Description 01/13/2026 8:45 AM CDT Office Visit [facility] [address] [facility] [address] [facility] [address] [place] [address] Neli Pritchard, FINGERER-FISHERIES TECHNICAL OFFICER [address] [facility] [address] [address] Health Maintenance Due Date Last Done Comments BONE DENSITY TESTING 1950 COLOGUARD (AGES 45-75) - COL ON CA SCREENING 1950 COLON MONITORING 1950 COLONOSCOPY - COLON CA SCREENING 1950 CT COLONOGRAPHY - COLON CA SCREENING 1950 Colorectal Cancer Screening 1950 FIT - COLON CA SCREENING 1950 FLEX SIG - COLON CA SCREENING 1950 MAMMOGRAM 1950 MEDICARE AWV 12 MONTHS 1950 HEPATITIS C SCREENING 09/17/1968 DTAP/TDAP/TD VACCINES (1 - Tdap) 1969 PNEUMOCOCCAL VACCINE 50+ (1 of 1 - PCV) 2000 ZOSTER VACCINE (1 of 2) 2000 COVID-19 VACCINE (3 - 2023-2 5 season) 2024 01/02/2021, 12/05/2020 DEPRESSION SCREENING 10/24/2024 INFLUENZA VACCINE (Season Ended) 2025 Respiratory Syncytial Virus (RSV) Vaccine Pt: or over 60 yrs (1 - 1-dose 75+ series) 2025 LIPID TESTING 12/18/2026 12/18/2021 HEPATITIS B VACCINE Aged Out No longe r eligible based on patient's age to complete this topic HIB VACCINE Aged Out No longer eligi ble based on patient's age to complete this topic HPV VACCINE Aged Out No longer eligi ble based on patient's age to complete this topic MENINGOCOCCAL (Group B) VACCINE SHARED DECISION-MAKING Aged Out No longer eligible based on patient's age to complete this topic MENINGOCOCCAL GROUPS A/C/Y/W VACCINE Aged Out No longer eligible b ased on patient's age to complete this topic Medical Devices Implanted Type Area Auto Damage Appraiser Device Identifier Shelf Expiration Date Model / Serial / Lot Shell Actb 50mm Hip 3 Hl R3 Implanted:Qty: 1 on 08/11/2023 at [facility] Right: Hip [employer] 02/07/2033 [id number] / / [id number] Screw 6.5mm 45mm Sphrcl Head Hip Actb Implanted:Qty: 1 on 08/11/2023 at [facility] Right: Hip [employer] 04/08/2029 [id number] / / [id number] Liner Actb R3 +4mm 50mm 36mm Xlpe Hip Implanted:Qty: 1 on 08/11/2023 at [facility] Right: Hip [employer] 11/22/2032 [id number] / / [id number] Head Fem -3mm 12/14 Tpr 36mm Hip Rev Implanted:Qty: 1 on 08/11/2023 at [facility] Right: Hip [employer] 02/22/2033 [id number] / / [id number] Stm Fem 158mm Hip 6 Lat Ofst Intgr-+ Implanted:Qty: 1 on 08/11/2023 at [facility] Right: Hip [employer] 01/25/2029 [id number] / / [id number] Explanted Type Area Auto Damage Appraiser Device Identifier Shelf Expiration Date Model / Serial / Lot Pin Hlf 255mm 5mm Jtx Lng Orth Ss 45mm Explanted:Qty: 1 on 08/11/2023 at [facility] Right: Hip [employer] [id number] / / Insurance MEDICARE Advance Directives * Full Code (Latest Code Status on File) Date Activated Date Inactivated Comments 08/13/2023 11:26 AM To update th e patient's code status, place a code status order. Do not modify or discontinue any currently active code status orders. * Full Code Date Activated Date Inactivated Comments 08/11/2023 11:01 AM 08/12/2023 4:45 PM * Full Code Date Activated Date Inactivated Comments 01/10/2023 11:04 AM 01/11/2023 3:50 PM Care Teams Traffic Signal Repairer Relationship Specialty Start Date End Date Kalia Samaniego MD [address] [place] [address] PCP - General Family Medicine 06/23/23
--- OUTSIDE RECORDS SUMMARY | 2025-03-19 00:19 | XMS_ITS | Clinical Summary ---
Author Organization [id number] [facility] Address [address] [place] [address] Care Team Providers Care Rides Attendant Name Role Phone Kalia Samaniego MD Primary Care Provider [phone] Allergies Active Allergy Reactions Criticality Noted Date Comments Sulfa (Sulfonamide Antibiotics) Itching,Hives High 0 11/21/2019 Medications cyclobenzaprine (FLEXERIL) 5 mg Tablet Take 5 mg by mouth 3 times daily as needed for Spasm. Active celecoxib (CeleBREX) 200 mg capsule Take 200 mg by mouth 2 times daily with meals. Active montelukast (SINGULAIR) 10 mg tablet Take 10 mg by mouth daily at bedtime. Active timolol hemihydrate (BETIMOL) 0.5% solution 1 Drop 2 times daily. Active Fish Oil-[place]-3 Fatty Acids 360-1,200 mg Capsule Take 1 Capsule by mouth. Active multivitamin (DAILY-NEERAJ) tablet Take 1 Tablet by mouth daily. Active acetaminophen/di phenhydramine (TYLENOL PM EXTRA STRENGTH ORAL) Take by mouth. Activ e albuterol HFA 90 mcg inhaler Take 2 Puffs by inhalation every 6 hours as needed. 0 Active Calcium Carbonate-Vit D3-Min 600 mg calcium- 400 unit Tablet 1 Tablet 2 times daily. 9 Active Restasis 0.05 % emulsion 1 Active fluticasone propion-salmeter oL (Advair HFA) 115-21 mcg/actuation HFA Aerosol Inhaler Take 2 Puffs by inhalation 2 times daily. 0 Active atorvastatin (LIPITOR) 10 mg tablet Take 10 mg by mouth daily. 0 Active DULoxetine (CYMBALTA) 30 mg Capsule, Delayed Release(E.C.) 1 Active furosemide (LASIX) 20 mg tablet Take 20 mg by mouth daily. 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 02/17/2021 Other spondylosis with radiculopathy, lumbar reg ion 02/17/2021 Spondylolisthesis at L4-L5 level 02/17/2021 Inflammation of right sacroiliac joint Exogenous obesity 02/17/2021 Social History Tobacco Use Types Packs/Day Years Used Date Smoking Tobacco: Never Smokeless Tobacco: Never Alcohol Use Standard Drinks/Week Comments Never 0 (1 standard drink = 0.6 oz pur e alcohol) Comments Unknown Sex and Gender Information Value Date Recorded Sex Assigned at Not on file Legal Sex Female 8:50 AM 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 Gender Identity Not on file Sexual Orientation Not on file Last Filed Vital Signs Vital Sign Reading Time Taken Comments Blood Pressure - - Pulse - - Temperature - - Respiratory Rate - - Oxygen Saturation - - Inhaled Oxygen Concentration - - Weight 97.5 kg (215 lb) 04/21/2021 10:07 AM CDT Height 157.5 cm (5' 2 ) 04/21/2021 10:07 AM CDT Body Mass Index 39.32 04/21/2021 10:07 AM CDT Plan of Treatment Health Maintenance Due Date Last Done Comments BREAST CANCER SCREENING 1990 FIT-DNA Q 3 years 1995 FIT/FOBT Q 1 year 1995 Flex Sig/CT Colonography Q 5 years 1995 PNEUMOCOCCAL VACCINE 50+ YEA RS (1 of 1 - PCV) 2000 ZOSTER VACCINE (1 of 2) 2000 OSTEOPOROSIS SCREENING 05/16/2020 05/16/2015 DTAP/TDAP/TD VACCINES (2 - Td or Tdap) 01/09/2023 INFLUENZA VACCINE (#1) 2024 COVID-19 Vaccine (3 - 2023- season) 06/24/202409/2021, 12/05/2020 RSV VACCINE (60+ or ) (1 - 1-dose 75+ series) 2025 COLORECTAL SCREENING 10/23/2025 10/23/2015 Colorectal Cancer Screening 10/23/2025 Care Teams Rides Attendant Relationship Specialty Start Date End Date Kalia Samaniego MD [address] [facility] [address] [place] [address] PCP - General Family Practice 01/14/21
--- OUTSIDE RECORDS SUMMARY | 2025-03-19 00:20 | XMS_ITS ---
Author Organization 1 OF [facility]du[facility] Address [address] [address] Care Team Providers Care Human Resources Director Name Role Phone Kalia Samaniego MD Primary Care Provider Unavaila Ebony Wallis Unavailable [phone] Allergies Allergen (clinical drug ingredient) Drug/Non Drug Allergy documented on EMR Reaction Allergy Type Onset Date Status Substance with sulfonamide structure and antibacterial mechanism of action (substance) Sulfa Antibiotics Unknown Drug Allergy Active REASON FOR VISIT toenail issue Medications Medication SIG (Take, Route, Frequency, Duration) Notes Start Date End Date Status Montelukast Sodium 10 MG Oral for 90 Active Pantoprazole Sodium 40 MG Oral for 90 Active Ketoconazole 2 % 1 application to exposed toenail bed Topical Once a day for 90 days 02/23/2023 Not-Taking DULoxetine HCl 60 MG Oral for 90 Active Ciclopirox 8 % 1 application to affected toenails daily. Every weekend, remove medicine with nail vietnamese remover. Topical Once a day for 120 days 02/23/2023 Not-Taking Vital Signs Height 61.5 in 11/23/2023 Weight 122 lbs 11/23/2023 BMI 22.68 kg/m2 11/23/2023 Encounters Encounter Location Date Provider Diagnosis 1 OF Edward Delacruz [facility] [address] [address] 11/23/2023 Ebony Hernandez Dermatophytosis, nail B35.1 Assessments Encounter Date Diagnosis (ICD Code) Assessment Notes Treatment Notes Treatment Clinical Notes Section Notes 11/23/2023 Dermatophytosi s, nail (ICD-10 - B35.1) Evaluation today included a review of medical history, review of systems, discussion of exam findings, and review of diagnoses and treatment options. I explained to the patient that sometimes a fungal toenail can loosen from the toenail bed. I discussed that this is likely what happened along the distal aspect of the toenail plate. The toenail plate was smoothed for her. She was advised that the remainder of the toenail plate appears attached. She was advised that no further intervention needs to be performed at this time. She can continue to use the ciclopirox on the toenail plate, while it continues to grow out. All questions and concerns were addressed. She can call with any further issues to the toenail. Plan Of Treatment Treatment Notes Assessment Notes Dermatophytosis, nail Evaluation today i ncluded a review of medical history, review of systems, discussion of exam findings, and review of diagnoses and treatment options. I explained to the patient that sometimes a fungal toenail can loosen from the toenail bed. I discussed that this is likely what happened along the distal aspect of the toenail plate. The toenail plate was smoothed for her. She was advised that the remainder of the toenail plate appears attached. She was advised that no further intervention needs to be performed at this time. She can continue to use the ciclopirox on the toenail plate, while it continues to grow out. All questions and concerns were addressed. She can call with any further issues to the toenail. Next Appt Details Follow Up: prn, Reason: Progress Notes * Linda C[birth year]DOB:[birth year] (73 yo F)Acc No.[id number]:11/23/2023 Progress Notes Patient: Linda VALDIVIA Provider: Khadar Hernandez DPM :1950 A ge:73 Y S ex:Female Date:11/23/2023 Address:[address] [place], [place] [id number] Pcp:Kalia Samaniego MD Subjective: * Chief Complaints: * T oenail issue * HPI: Marina Charles assisting with visit:: HPI/Rooming: Jose Manuel steele. Olya abreu reason for visit:: Follow-up: P atient RTO for f/u of nail fungus, at the last appt the pt was advised to continue using ciclopirox on the nails until the nails were completely cleared. Today the pt reports that the RT hallux nail came off about 3 weeks ago. Pt denies any recent injuries related to this condition. Pt reports no pain, unless she messes with it or clean it out . Pt denies any drainage or bleeding. P t reports she had a knee replacement in July.. * ROS: * MULTI-SYSTEM REVIEW:: Nausea, fever or chillls d enies. A ny change in medications since last visit? d enies. A ny changes in medical history/hospitalizations? d enies. * Medical History: * Medications: T akingDULoxetine HCl 60 MG Capsule Delayed Release Particles Oral Pantoprazole Sodium 40 MG Tablet Delayed Release Oral Montelukast Sodium 10 MG Tablet Oral Taking DULoxetine HCl 60 MG Capsule Delayed Release Particles Oral Taking Pantoprazole Sodium 40 MG Tablet Delayed Release Oral Taking Montelukast Sodium 10 MG Tablet Oral Not-Taking/PRNCiclopirox 8 % Solution 1 application to affected toenails daily. Every weekend, remove medicine with nail vietnamese remover. Topical Once a day Ketoconazole 2 % Cream 1 application to exposed toenail bed Topical Once a day Not-Taking/PRN Ciclopirox 8 % Solution 1 application to affected toenails daily. Every weekend, remove medicine with nail vietnamese remover. Topical Once a day Not-Taking/PRN Ketoconazole 2 % Cream 1 application to exposed toenail bed Topical Once a day DiscontinuedHydroxychloroquine Sulfate 200 MG Tablet Oral Medication List reviewed and reconciled with the patientDiscontinued Hydroxychloroquine Sulfate 200 MG Tablet Oral Medication List reviewed and reconciled with the patient * Allergies: S ulfa Reshmano[Allergies Verified] Objective: * Vitals: W t:122lbs, Wt-k.34 kg, Ht: 61.5 in, BMI:22.68Index. * Examination: G eneral Examination: Constitutional / Appearance: N o acute distress , Well nourished, Appropriate personal hygiene. Mental status: C ooperative, Oriented to person, place and time, Mood and affect: normal, Judgement and intellect: normal with appropriate response to questions. Shoes today: S lip-on sketchers. Exam unchanged from prior visit: w ith no significant changes in appearance or condition of feet, excluding the following findings noted on exam today: The right hallux nail exhibits some mild onycholysis noted distally. There is minimal yellowish discoloration and subungual debris to the toenail plate noted distally. There appears to be some clearing of the proximal toenail plate. No significant pain with palpation. No drainage noted. No surrounding erythema noted.. Assessment: * Assessment: 1. D ermatophytosis, nail - B35.1 (Primary) Plan: * Treatment: * Procedure Codes: * Follow Up: p rn * Images: * ICAL APPEALS SPECIALIST Sign off status: Completed true * Provider: Khadar Hernandez DPM Date: 0 11/23/2023 Generated for Ros mistry/Get/Jose on: 0 03/19/2025 12:20 AM CDT History and Physical Notes * HPI (History of Present Illness) Category Sub-Category Detail Notes Category Not es Primary reason for visit: Follow-up: Keely arenas RTO for f/u of nail fungus, at the last appt the pt was advised to continue using ciclopirox on the nails until the nails were completely cleared. Today the pt reports that the RT hallux nail came off about 3 weeks ago. Pt denies any recent injuries related to this condition. Pt reports no pain, unless she messes with it or clean it out . Pt denies any drainage or bleeding. Pt reports she had a knee replacement in July. MA assisting with visit: HPI/Rooming: Laury Examination Category Sub-Category Detail Notes Category Not es General Examination Mental status: Cooperative, Oriented to person, place and time, Mood and affect: normal, Judgement and intellect: normal with appropriate response to questions Shoes today: Slip-on sketchers Exam unchanged from prior visit: with no significant changes in appearance or condition of feet, excluding the following findings noted on exam today: The right hallux nail exhibits some mild onycholysis noted distally. There is minimal yellowish discoloration and subungual debris to the toenail plate noted distally. There appears to be some clearing of the proximal toenail plate. No significant pain with palpation. No drainage noted. No surrounding erythema noted. Constitutional / Appearance: No acute di stress , Well nourished, Appropriate personal hygiene
[2025-03-19 10:06] VITALS: BP 115/58; PULSE 63; RESP 18; TEMP 36.1; O2SAT 100; BMI 23.6
[2025-03-19] MEDS: LACTATED RINGERS 1,000 ML 150 ML IV CONT (10:15)
--- NOTE | 2025-03-19 10:36 | WPDANESEPPF ---
Anes - Initial Pre Proc Eval Procedure: Operation Date: 03/19/25 11:30 Proposed Procedures p Colonoscopy - Daron Kwong MD Date/Time: 03/19/25 10:36 Surgeon: Daron Kwong MD Pre Op Diagnosis: Other fecal abnormalities Patient Data Age: 74 Gender: F Height: 1.57 m Weight: 58.7 kg Last Vital Signs Temp 97 F L 03/19/25 10:06 Pulse 63 03/19/25 10:06 Resp 18 03/19/25 10:06 BP 115/58 L 03/19/25 10:06 Pulse Ox 100 03/19/25 10:06 O2 Del Method Room Air 03/19/25 10:06 Allergies Allergy/AdvReac Type Severity Reaction Status Date / Time Sulfa (Sulfonamide AdvReac Mild RED WELPS Verified 03/19/25 10:04 Antibiotics) AT FOLD AREAS OF NECK/GROIN/AXILLA Home Medications ?Medication ?Instructions ?Recorded ?Confirmed ?Type albuterol sulfate 90 mcg/actuation 1 puff inhalation Q4H PRN Dyspnea 06/17/20 03/13/25 History aerosol inhaler (ProAir HFA) calcium 315 mg (as 1 tablet PO BID 06/17/20 03/19/25 History citrate)-vitamin D3 6.25 mcg (250 unit) tablet (Citracal + Vitamin D Maximum) fluticasone propionate 50 2 spray intranasal DAILY PRN 06/17/20 03/13/25 History mcg/actuation nasal Congestion spray,suspension vit C 250 mg-vit E 200 unit-zinc 1 cap PO BID 06/17/20 03/19/25 History ox 12.5 zx-fobwcw-ksyqst-zeax capsule (ICaps AREDS2) cyclobenzaprine 5 mg tablet 5 mg PO HS 02/12/21 03/19/25 History diphenhydramine 25 1 tablet PO HS PRN Insomnia 02/12/21 03/13/25 History mg-acetaminophen 500 mg tablet (Tylenol PM Extra Strength) lidocaine 5 % topical patch 1 patch topical DAILY PRN Pain #30 06/29/22 03/13/25 Rx (Lidoderm) ea lhurrrhu-gqlpojzo-jljd 45 mg-folic See Rx Instructions .Route 12/28/22 03/19/25 Rx acid 800 mcg-vit K 120 mcg capsule .COMPLEX #30 caps (Bariatric Multivitamins) montelukast 10 mg tablet 10 mg PO DAILY #90 tabs 06/15/24 03/19/25 Rx (Singulair) duloxetine 30 mg capsule,delayed 30 mg PO DAILY #90 caps 08/14/24 03/19/25 Rx release duloxetine 60 mg capsule,delayed 60 mg PO DAILY #90 caps 08/14/24 03/19/25 Rx release tramadol 50 mg tablet 50 mg PO Q6H PRN pain 11/27/24 03/13/25 History pantoprazole 40 mg tablet,delayed 40 mg PO QAM #90 tabs 02/19/25 03/19/25 Rx release lifitegrast 5 % eye drops in a 1 drp EACH EYE BID 03/13/25 03/13/25 History dropperette (Xiidra) Patient hx anesthesia problems: none Family hx anesthesia problems: none Results Review: All pre-operative results and documents have been reviewed as part of the pre-operative evaluation. [facility] Past Medical History Medical History PONV (postoperative nausea and vomiting) Allergic rhinitis Asthma HLD (hyperlipidemia) Glaucoma Macular degeneration Fibromyalgia Sjogren's disease Surgical History Surgical History History of bariatric surgery gastric bypass History of cholecystectomy History of bilateral cataract extraction History of bilateral tubal ligation History of D&C Family History Family History Sibling Throat cancer Hypertension Heart disease Mother Dementia Social History Social History Smoking status: Never smoker Second hand tobacco smoke exposure: No Alcohol intake: current Alcohol use details: holidays/socially Substance use: never Substance use type: does not use Do You Feel Safe in your Home?: Yes Lack of Transportation: No Lack of Food: Never True Current Housing: I Have Housing Concerned About Future Housing: No Difficulty Paying Gas/Electric Bills: No Difficulty Paying for Meds: No Currently Unemployed: No Education: Bachelor's Degree Difficulty w/ Childcare or Family Care: No Living arrangements: with family Additional living arrangements comments: with sp Occupation/Education: retired Gender identity (if verbalized by the patient): Female Sexual Orientation (if Verbalized by the Patient): Straight or Heterosexual Anes - Eval Final PreProcedure Day of Procedure 03/19/25 10:36 Patient weight: normal Heart: regular rate and rhythm Lungs: clear to auscultation Airway: Mallampati scale class II Neurological: alert and oriented Last oral intake: >/= 8 hours ASA classification: III Emergent: no Anesthetic plan: proceed Anesthesia type and monitoring: general GIVS and standard monitoring Results Review: All pre-operative results and documents have been reviewed as part of the pre-operative evaluation. Informed Consent: The patient's anesthetic plan and its attendant risks and benefits were discussed with the patient/family/POA. Questions were solicited and answers provided to the satisfaction of the patient/family/POA.
--- NOTE | 2025-03-19 10:47 | PM.HPGS ---
History of Present Illness History of Present Illness Consent: Risks, benefits, and alternatives have been discussed and questions answered. Patient agrees to proceed with procedure. Chief complaint: Other fecal abnormalities Narrative: Linda Cooley is a 74 year old female with + cologuard, last colonoscopy 8 years ago Review of Systems Review of Systems: All systems reviewed & are unremarkable except as noted in HPI and below PMFSH Past Medical History Medical History (Updated 03/19/25 @ 10:47 by Daron Kwong MD) Positive colorectal cancer screening using Cologuard test PONV (postoperative nausea and vomiting) Allergic rhinitis Asthma HLD (hyperlipidemia) Glaucoma Macular degeneration Fibromyalgia Sjogren's disease Surgical History Surgical History History of bariatric surgery gastric bypass History of cholecystectomy History of bilateral cataract extraction History of bilateral tubal ligation History of D&C Family History Family History Sibling Throat cancer Hypertension Heart disease Mother Dementia Social History Social History Smoking status: Never smoker Second hand tobacco smoke exposure: No Alcohol intake: current Alcohol use details: holidays/socially Substance use: never Substance use type: does not use Do You Feel Safe in your Home?: Yes Lack of Transportation: No Lack of Food: Never True Current Housing: I Have Housing Concerned About Future Housing: No Difficulty Paying Gas/Electric Bills: No Difficulty Paying for Meds: No Currently Unemployed: No Education: Bachelor's Degree Difficulty w/ Childcare or Family Care: No Living arrangements: with family Additional living arrangements comments: with sp Occupation/Education: retired Gender identity (if verbalized by the patient): Female Sexual Orientation (if Verbalized by the Patient): Straight or Heterosexual Meds Home Medications and Allergies Home Medications ?Medication ?Instructions ?Recorded ?Confirmed ?Type albuterol sulfate 90 mcg/actuation 1 puff inhalation Q4H PRN Dyspnea 06/17/20 03/13/25 History aerosol inhaler (ProAir HFA) calcium 315 mg (as 1 tablet PO BID 06/17/20 03/19/25 History citrate)-vitamin D3 6.25 mcg (250 unit) tablet (Citracal + Vitamin D Maximum) fluticasone propionate 50 2 spray intranasal DAILY PRN 06/17/20 03/13/25 History mcg/actuation nasal Congestion spray,suspension vit C 250 mg-vit E 200 unit-zinc 1 cap PO BID 06/17/20 03/19/25 History ox 12.5 en-kvvnct-dfmioc-zeax capsule (ICaps AREDS2) cyclobenzaprine 5 mg tablet 5 mg PO HS 02/12/21 03/19/25 History diphenhydramine 25 1 tablet PO HS PRN Insomnia 02/12/21 03/13/25 History mg-acetaminophen 500 mg tablet (Tylenol PM Extra Strength) lidocaine 5 % topical patch 1 patch topical DAILY PRN Pain #30 06/29/22 03/13/25 Rx (Lidoderm) ea idmpfisc-zaykbdhd-slyy 45 mg-folic See Rx Instructions .Route 12/28/22 03/19/25 Rx acid 800 mcg-vit K 120 mcg capsule .COMPLEX #30 caps (Bariatric Multivitamins) montelukast 10 mg tablet 10 mg PO DAILY #90 tabs 06/15/24 03/19/25 Rx (Singulair) duloxetine 30 mg capsule,delayed 30 mg PO DAILY #90 caps 08/14/24 03/19/25 Rx release duloxetine 60 mg capsule,delayed 60 mg PO DAILY #90 caps 08/14/24 03/19/25 Rx release tramadol 50 mg tablet 50 mg PO Q6H PRN pain 11/27/24 03/13/25 History pantoprazole 40 mg tablet,delayed 40 mg PO QAM #90 tabs 02/19/25 03/19/25 Rx release lifitegrast 5 % eye drops in a 1 drp EACH EYE BID 03/13/25 03/13/25 History dropperette (Xiidra) Allergies Allergy/AdvReac Type Severity Reaction Status Date / Time Sulfa (Sulfonamide AdvReac Mild RED WELPS Verified 03/19/25 10:04 Antibiotics) AT FOLD AREAS OF NECK/GROIN/AXILLA Vital Signs Vital Signs - 24 hr 03/19/25 10:06 Temperature 97 F L Pulse Rate 63 Respiratory Rate 18 Blood Pressure 115/58 L Pulse Oximetry 100 Oxygen Delivery Room Air Exam Const: General: comfortable and no acute distress HENMT: Face/Nose/Sinus: Normal nares present Eyes: General: appearance normal, both eyes and all related structures Neck: Neck: no JVD Resp: Auscultation: clear to auscultation bilaterally Cardio: Rate: regular rate Rhythm: regular rhythm GI: Inspection: non-distended GI Palp: Yes Soft to palpation Skin: General skin exam: normal color Neuro: Speech: normal speech Extrem: General: normal to inspection Psych: Mental Status: mental status grossly normal Assessment and Plan Assessment and plan (1) Positive colorectal cancer screening using Cologuard test: Code(s): R19.5 - Other fecal abnormalities Status: Acute Assessment and Plan: colonoscopy
[2025-03-19 11:10] VITALS: BP 126/70; PULSE 62; RESP 20; O2SAT 100
[2025-03-19 11:20] VITALS: BP 135/69; PULSE 59; RESP 15; O2SAT 100
[2025-03-19 11:30] VITALS: BP 137/72; PULSE 61; RESP 19; O2SAT 100
== END 2025-03-19 11:45 | disposition home or self-care (01) ==
PROVIDERS: PCP Family Medicine; Referring Provider Student in an Organized Health Care Education/Training Program; Visit Provider Internal Medicine Gastroenterology
PROC: 0DJD8ZZ Inspection of Lower Intestinal Tract, Via Natural or Artificial Opening Endoscopic (ICD-10-PCS; CPT 45378; principal; 2025-03-19 11:30)
DX: K63.5 Polyp of colon (principal); K57.30 Diverticulosis of large intestine without perforation or abscess without bleeding; J45.909 Unspecified asthma, uncomplicated; E78.5 Hyperlipidemia, unspecified; H35.30 Unspecified macular degeneration; M79.7 Fibromyalgia; M35.00 Sjogren syndrome, unspecified; Z79.51 Long term (current) use of inhaled steroids; Z79.891 Long term (current) use of opiate analgesic; Z98.890 Other specified postprocedural states; Z98.84 Bariatric surgery status; Z90.49 Acquired absence of other specified parts of digestive tract; Z98.51 Tubal ligation status; Z80.1 Family history of malignant neoplasm of trachea, bronchus and lung; Z82.49 Family history of ischemic heart disease and other diseases of the circulatory system
CPT/HCPCS: 45385; 88305; J2003; J2704; J7120